=== PATIENT | female | born 1930 | race Caucasian/White ===

== ENCOUNTER 2020-05-05 23:20 | Inpatient (IN) | payer OTHER ==
--- NOTE | 2020-05-05 23:35 | PDOC ---
Attending Attestation - Resident Resident Name: Minnie Silva - ED Attending Attestation I have performed the following: I have examined & evaluated the patient, The case was reviewed & discussed with the resident, I agree w/resident's findings & plan, Exceptions are as noted - HPI HPI: 05/05/20 23:36 89 yo female BIBA for shortness of breath, pain in lower back. The daughter said that this pt had a 101 temperate yesterday and had been given tylenol 05/05/20 23:49 PMH: afib,dementia,htn,hld,PPM Dr Silva spoke with her daughter who is the health care proxy This patent is currently NOT on Coumadin because it was deemed she was a fall risk 05/06/20 00:45 89 yo female lives at home with an aide reviewd labs there is leukocytosis plan r/o PNA,ACS,uti - Physicial Exam PE: 05/05/20 23:37 slender 89 yo female with c/o low back pain head no scalp lacerations neck no cervical vertebral tenderness lungs cta b/l cvs irreg irreg rhythm abdomen no rebound.nontender extremities no edema skin warm and dry neuro axox3 05/06/20 00:10 - Medical Decision Making 05/06/20 00:28 She is on oxygen at home Dr Minnie Silva spoke with the pt's daughter for information Pt had c/o right sided back pain 05/06/20 00:33 05/06/20 00:58 PMH: afib,dementia,htn,hld,PPM Dr Silva spoke with her daughter who is the health care proxy This patent is currently NOT on Coumadin because it was deemed she was a fall risk , The daughter also said that the pt has supplemental oxygen at home that she uses as needed 05/06/20 00:45 89 yo female lives at home with an aide reviewd labs there is leukocytosis and the urinalysis revels UTI,antibiotics given also her troponin of 0.24 will have to be trended plan r/o PNA,ACS,uti 05/06/20 01:38 Discharge - Discharge Information Problems reviewed: Yes Clinical Impression/Diagnosis: Shortness of breath, Elevated troponin Leukocytosis (leucocytosis) Qualifiers: Leukocytosis type: unspecified Qualified Code(s): D72.829 - Elevated white blood cell count, unspecified - Admission Yes - Follow up/Referral - Patient Discharge Instructions - Post Discharge Activity
--- NOTE | 2020-05-05 23:54 | PDOC ---
History of Present Illness - General Stated Complaint: SOB Time Seen by Provider: 05/05/20 23:33 - History of Present Illness Initial Comments: Pt is an 89yo F with PMH CHF, afib s/p pacemaker, htn, hld, who presents with back pain x2 days. Reports intermittent, pleuritic back pain that is non radiating. Currently denies back pain or SOB. Denies f/c, chest pain, abdominal pain, n/v. denies trauma, falls. Walks with walker - denies JJ. Lives with daug hter at home. Reports remote history of DVT, denies recent immobilization, surgery, hemoptysis, or recent malignancy Spoke with daughter Ping Ward ([phone]) who states that patient was in her usual state of health on Tuesday. Reports that 2 days ago, patient was reporting SOB with increased intermittent oxygen requirement (although does not remember how much o2 needed). Reports that pt had 100.1 fever yesterday and was given Tylenol (last dose at 2pm today). Notes that patient has had decreased appetite, fatigue, and diffuse body ache during this time. States that patient is not on anticoagulation, lives with aide 7 hrs/day with family staying overnight. Daughter states that patient seems to have short term memory loss and denies hx of dementia. Pt was at [facility] in [place] for 2 months after discharge from here in November for palliative care - found to have sepsis (daughter did not know origin). Spoke with daughter who is healthcare proxy who states that patient is DNR/DNI. PCP: Elysia PMH: see above PSH: see chart Meds: TOPROL, LOSARTAN, FUROSEMIDE as per daughter Allergies: NKDA Review of Systems CONSTITUTIONAL:denies fever, chills, diaphoresis, generalized weakness HEENT:denies rhinorrhea, nasal congestion, sore throat, visual changes CARDIOVASCULAR:denies chest pain, palpitations, lightheadedness, peripheral edema RESPIRATORY:denies cough, shortness of breath, dyspnea with exertion, wheezing, hemoptysis GASTROINTESTINAL: denies abdominal pain, abdominal distension, nausea, vomiting, diarrhea, constipation, melena, hematochezia GENITOURINARY:denies dysuria, frequency, urgency, hesitancy, hematuria, flank pain, genital pain MUSCULOSKELETAL:reports back pain HEMATOLOGIC/IMMUNOLOGIC:denies easy bleeding, easy bruising ENDOCRINE: denies unexplained weight gain, unexplained weight loss, heat intolerance, cold intolerance NEUROLOGIC:denies headache, loss of consciousness, focal weakness or paresthesias, dizziness, unsteady gait, seizure, mental status changes, bladder or bowel incontinence SKIN:denies rash, itching, pallor Physical Exam General: awake, AOX4, in no acute distress, thin appearing Head: normocephalic, atraumatic Eyes: PERRL, anicteric sclera, conjunctiva clear ENT: mildly hard of hearing, oropharynx clear without exudates, moist mucous membranes Neck: supple, normal ROM, no stridor, no midline neck tenderness Lung: equal breath sounds b/l, CTA b/l, no crackles, wheezes Heart: irregular rhythm, normal S1, S2, no murmurs appreciated Abdomen: soft, non tender, normoactive bowel sounds Extremities: no edema, no erythema or tenderness, radial/DP/PT pulses 2+ and symmetric Back: no Neuro: CN2-12 grossly intact, normal speech, sensation intact Skin: warm, dry, decreased skin turgor, capillary refill <2 seconds MDM Pt is an 89yo M with PMH dementia, afib s/p pacemaker, htn, hld, who presents with pleuritic back pain, fever, SOB x2 days. Vitals significant for soft BP, tachycardia, tachypnea. DDx including but not limited to: PE, ACS, sepsis Workup: CBC, CMP, VBG, d-dimer, trop, BNP, cxr, ekg EKG: afib with RVR, HR 104bpm, QRS 84ms, QTc 420ms CXR - improvement pleural effusion. cardiomegaly, midline airway, appropriate vascular markings as read by ED staff 05/06/20 00:55 labs: leukocytosis (19.6), no anemia - Will give 1g Rocephin, 500ml NS labs: elevated d-dimer, ISAIAS, troponin (0.24), elevated BNP (11815.9) - will order ABG UA: bacteriuria, +2 LE Pt had history of fall with subsequent subarachnoid bleed on prior admission on 11/2019 - will order 60 SQ lovenox Admitted to Dr. Gautam, who accepted care of patient. Disposition Admit Past History - Medical History Allergies/Adverse Reactions: Allergies Allergy/AdvReac Type Severity Reaction Status Date / Time No Known Allergies Allergy Verified 05/05/20 23:37 Home Medications: Ambulatory Orders Amlodipine Besylate 5 mg PO DAILY 12/23/19 Furosemide 40 mg PO DAILY 12/23/19 Losartan Potassium 100 mg PO DAILY 12/23/19 Metoprolol Tartrate 100 mg PO DAILY 12/23/19 Aspirin Coated [Ecotrin -] 81 mg PO DAILY tablet.ec 12/31/19 Atorvastatin Ca [Lipitor] 40 mg PO HS tablet 12/31/19 Cholecalciferol (Vitamin D3) [Vitamin D3 -] 5,000 unit PO DAILY tab 12/31/19 Metoprolol Succinate [Toprol XL -] 50 mg PO BID tab.sr.24h 12/31/19 Anemia: No Asthma: No Cancer: No Cardiac Disorders: Yes (PACEMAKER; AFIB/RVR) CVA: No COPD: No CHF: No Dementia: Yes Diabetes: No GI Disorders: No Disorders: No HTN: Yes Hypercholesterolemia: Yes Liver Disease: No Seizures: No Thyroid Disease: No - Surgical History Abdominal Surgery: Yes (PARTIAL COLECTOMY & RE-ANASTAMOSIS) Appendectomy: No Cardiac Surgery: Yes (PPM INSERTION) Cholecystectomy: No Lung Surgery: No Neurologic Surgery: No Orthopedic Surgery: No - Reproductive History Is Patient Now?: No - Psycho-Social/Smoking History Smoking History: Never smoked Information on smoking cessation initiated: No - Substance Abuse Hx (Audit-C & DAST Scrn) How often the patient has a drink containing alcohol: Never Score: In Men: 4 or > Positive; In Women: 3 or > Positive: 0 Screen Result (Pos requires Nsg. Audit-10AR): Negative In the last yr the pt used illegal drug/Rx for NonMed reason: No Score: Yes response is considered Positive: 0 Screen Result (Positive result requires Nsg. DAST-10): Negative *Physical Exam - Vital Signs Last Vital Signs Temp Pulse Resp BP Pulse Ox 98.6 F 82 20 93/75 100 05/05/20 23:25 05/05/20 23:25 05/05/20 23:25 05/05/20 23:25 05/05/20 23:25 ED Treatment Course - LABORATORY CBC & Chemistry Diagram: 05/11/20 06:36 05/11/20 06:36 Discharge - Discharge Information Problems reviewed: Yes Clinical Impression/Diagnosis: Shortness of breath, Elevated troponin Leukocytosis (leucocytosis) Qualifiers: Leukocytosis type: unspecified Qualified Code(s): D72.829 - Elevated white blood cell count, unspecified - Follow up/Referral - Patient Discharge Instructions - Post Discharge Activity
[2020-05-06 00:41] LABS: BASO % 0.3 % (0-2.0); EOS % 0.9 % (0-4.5); HEMATOCRIT 34.2 % (32.4-45.2); HEMOGLOBIN 10.5 GM/dL (10.7-15.3); LYMPH % 5.6 % (8-40); MCH 22.6 pg (25.7-33.7); MCHC 30.8 g/dl (32.0-36.0); MEAN CELL VOLUME 73.4 fl (80-96); MEAN PLT VOLUME 9.5 fl (7.5-11.1); NEUT % 90.2 % (42.8-82.8); PLATELET COUNT 118 K/MM3 (134-434); RBC 4.66 M/mm3 (3.60-5.2); RDW 17.1 % (11.6-15.6); WHITE BLOOD COUNT 19.6 K/mm3 (4.0-10.0)
[2020-05-06] MEDS ORDERED: CEFTRIAXONE 1 GM in DEXTROSE 5%-WATER - 50 ML IVPB ONE (00:53)
[2020-05-06] MEDS ORDERED: SODIUM CHLORIDE 0.9% 500 ML INFUS.BAG IV ONE (00:54)
[2020-05-06 01:03] LABS: VENOUS BASE EXCESS -3.9 mmol/L (-2-2); VENOUS O2 SATURATION 71.8 % (70-80); VENOUS PCO2 40.4 mmHg (38-52); VENOUS PH 7.344 (7.310-7.410)
[2020-05-06 01:06] LABS: ALBUMIN 3.2 g/dl (3.4-5.0); BILIRUBIN,TOTAL 1.4 mg/dL (0.2-1); BLOOD UREA NITROGEN 61.8 mg/dL (7-18); CALCIUM 8.6 mg/dL (8.5-10.1); CREATININE 1.5 mg/dL (0.55-1.3); N-TERMINAL BNP 12656.9 pg/ml (5-450); POTASSIUM 4.3 mmol/L (3.5-5.1); TOT PROT 6.8 g/dl (6.4-8.2)
[2020-05-06] MEDS ORDERED: CEFTRIAXONE 1 GM/50 ML BAG ONE (01:15)
[2020-05-06 01:31] LABS: EPI CELLS 7 /uL (0-25.1); HYALINE CASTS 2 /uL (0-3.1); URINE APPEARANCE CLEAR; URINE BACTERIA >9,000 /uL (0-1359); URINE BILIRUBIN NEGATIVE (NEGATIVE); URINE COLOR YELLOW; URINE GLUCOSE (UA) NEGATIVE (NEGATIVE); URINE KETONE NEGATIVE (NEGATIVE); URINE LEUK ESTERASE 2+ (NEGATIVE); URINE NITRITE NEGATIVE (NEGATIVE); URINE PROTEIN NEGATIVE (NEGATIVE); URINE RBC 10 /uL (0-23.9); URINE WBC 236 /uL (0-25.8)
[2020-05-06] MEDS ORDERED: ENOXAPARIN NA (PORCINE) 60 MG/0.6 ML DISP.SYRIN SQ ONE ×2 (01:45→01:49)
[2020-05-06] MEDS ORDERED: ENOXAPARIN NA (PORCINE) 60 MG/0.6 ML DISP.SYRIN SQ SCH (01:45)
[2020-05-06 02:26] LABS: ANISOCYTOSIS 2+; MACROCYTOSIS 0; PLATELET ESTIMATE DECREASED
--- NOTE | 2020-05-06 02:41 | PN ---
Progress Note, Physician Chief Complaint: Acute shortness of breath and back pain History of Present Illness: This 89 yr old female with PMH of atrial fibrillation, dementia, HTN, HLD, PPM admitted via ER with an acute shortness of breath, low back pain, fever, neutrophilic leukocytosis, high d-dimer, UTI, urosepsis, elevated lactic acid, prerenal azotemia, dehydration, hyponatremia, elevated troponin, anemia, and thrombocytopenia. - Current Medication List Current Medications: Active Medications Enoxaparin Sodium (Lovenox -) 60 mg SQ ONCE JOSE Last Admin: 05/06/20 01:54 Dose: 60 mg Documented by: - Objective Vital Signs: Vital Signs Temperature 98.6 F 05/05/20 23:25 Pulse Rate 82 05/05/20 23:25 Respiratory Rate 20 05/05/20 23:25 Blood Pressure 93/75 05/05/20 23:25 O2 Sat by Pulse Oximetry (%) 100 05/06/20 02:09 Labs: CBC, BMP 05/06/20 00:28 05/06/20 00:28
--- NOTE | 2020-05-06 03:33 | HP ---
Admitting History and Physical - Admission Chief Complaint: Acute shortness of breath and low back pain History of Present Illness: This 89 yr old female with PMH of atrial fibrillation, dementia, HTN, HLD, PPM, DVT, CHF, short term memory loss admitted via ER with an acute shortness of breath, low back pain, fever, neutrophilic leukocytosis, high d- dimer, UTI, urosepsis, elevated lactic acid, prerenal azotemia, dehydration, hyponatremia, elevated troponin, anemia, and thrombocytopenia. History Source: Medical Record Limitations to Obtaining History: Dementia - Past Medical History [employer]: Yes: Dementia Cardiovascular: Yes: AFIB, CHF, HTN, Hyperlipdemia Pulmonary: No: Asthma, Bronchitis, Cancer, COPD, O2 Dependent, Pneumonia, Previously Intubated, Pulmonary Embolus, Pulmonary Fibrosis, Sleep Apnea, Other Gastrointestinal: No: Ascites, Cancer, Constipation, Crohn's Disease, Diverticulitis, Diverticulosis, Esophageal Varices, Gastritis, GERD, GI Bleed, Hemorrhoids, Hiatal Hernia, Inflamatory Bowel Disease, Irritable Bowel Disease, Pancreatitis, Peptic Ulcer Disease, Ulcerative Colitis, Other Hepatobiliary: No: Cirrhosis, Cholelithiasis, Cholecystitis, Choledocholithiasis, Hepatitis A, Hepatitis B, Hepatitis C, Other Renal/: No: Renal Failure, Renal Inusuff, BPH, Cancer, Hematuria, Hemodialysis, Neurogenic Bladder, Renal Calculi, UTI, Other Reproductive: No: Ectopic , Endometriosis, Fibroids, PID, Polycystic Ovary Syndrome, Postmenopausal, Other ...: No Heme/Onc: No: Anemia, B12 Deficiency, Bleeding Disorder, Cancer, Current Chemotherapy, Current Radiation Therapy, Hemochromatosis, Hypercoaguable State, Myeloproliferative Synd, Sickle Cell Disease, Sickle Cell Trait, Thrombocytopenia, Other Infectious Disease: No: AIDS, C-Diff, Herpes Zoster, HIV, MRSA, STD's, Tuberculosis, VREF, Other Psych: No: Addictions, Anxiety, Bipolar, Depression, Panic, Psychosis, Schizophrenia, Other Musculoskeletal: No: Bursitis, Chronic low back pain, Hemiparesis, Hemiplegia, Osteoarthritis, Paraplegia, Other Rheumatology: No: Fibromyalgia, Gout, Lupus, Rheumatoid Arthritis, Sarcoidosis, Vasculitis, Other ENT: No: Allergic Rhinitis, Sinusitis, Other Endocrine: No: La Salle's Disease, Reed's Disease, Diabetes Insipidus, Diabetes Mellitus, Hyperparathyroidism, Hyperthyroidism, Hypothyroidism, Osteopenia, SIADH, Other Dermatology: No: Basal Cell, Cellulitis, Eczema, Melanoma, Psoriasis, Squamous Cell, Other - Smoking History Smoking history: Never smoked - Alcohol/Substance Use Hx Alcohol Use: No Home Medications - Allergies Allergies/Adverse Reactions: Allergies Allergy/AdvReac Type Severity Reaction Status Date / Time No Known Allergies Allergy Verified 05/05/20 23:37 - Home Medications Home Medications: Ambulatory Orders Amlodipine Besylate 5 mg PO DAILY 12/23/19 Furosemide 40 mg PO DAILY 12/23/19 Losartan Potassium 100 mg PO DAILY 12/23/19 Metoprolol Tartrate 100 mg PO DAILY 12/23/19 Simvastatin 40 mg PO DAILY 12/23/19 Aspirin Coated [Ecotrin -] 81 mg PO DAILY tablet.ec 12/31/19 Atorvastatin Ca [Lipitor] 40 mg PO HS tablet 12/31/19 Cholecalciferol (Vitamin D3) [Vitamin D3 -] 5,000 unit PO DAILY tab 12/31/19 Metoprolol Succinate [Toprol XL -] 50 mg PO BID tab.sr.24h 12/31/19 Review of Systems - Review of Systems Constitutional: reports: Malaise, Weakness Eyes: reports: No Symptoms HENT: reports: No Symptoms Neck: reports: No Symptoms Cardiovascular: reports: No Symptoms Respiratory: reports: SOB Gastrointestinal: reports: No Symptoms Genitourinary: reports: No Symptoms Breasts: reports: No Symptoms Reported Musculoskeletal: reports: Muscle Weakness Neurological: reports: Unsteady Gait, Weakness Endocrine: reports: No Symptoms Hematology/Lymphatic: reports: No Symptoms Psychiatric: reports: No Symptoms Physical Examination Vital Signs: Vital Signs Temperature 98.6 F 05/05/20 23:25 Pulse Rate 82 05/05/20 23:25 Respiratory Rate 20 05/05/20 23:25 Blood Pressure 93/75 05/05/20 23:25 O2 Sat by Pulse Oximetry (%) 100 05/06/20 02:09 Constitutional: Yes: Well Nourished, No Distress, Calm Eyes: Yes: Conjunctiva Clear, EOM Intact HENT: Yes: Atraumatic, Normocephalic Neck: Yes: Supple, Trachea Midline Cardiovascular: Yes: Pulse Irregular (atrial fibrillation) Respiratory: Yes: Regular, CTA Bilaterally Gastrointestinal: Yes: Normal Bowel Sounds, Soft ...Rectal Exam: Yes: Deferred Renal/: Yes: Incontinence Breast(s): Yes: WNL Musculoskeletal: Yes: Muscle Weakness Extremities: Yes: WNL Edema: No Peripheral Pulses WNL: Yes Integumentary: Yes: WNL Neurological: Yes: Alert, Unsteady Gait, Weakness ...Motor Strength: LUE (generalized muscle weakness of all extremities) Psychiatric: Yes: Alert Labs: CBC, BMP 05/06/20 00:28 05/06/20 00:28 Imaging - Results EKG: Report Reviewed Other: Report Reviewed (lab data reviewed) Problem List - Problems (1) AMS (altered mental status) Code(s): R41.82 - ALTERED MENTAL STATUS, UNSPECIFIED Qualifiers: Altered mental status type: unspecified Qualified Code(s): R41.82 - Altered mental status, unspecified (2) Atrial fibrillation with RVR Code(s): I48.91 - UNSPECIFIED ATRIAL FIBRILLATION (3) Elevated INR Code(s): R79.1 - ABNORMAL COAGULATION PROFILE (4) Elevated troponin Code(s): R79.89 - OTHER SPECIFIED ABNORMAL FINDINGS OF BLOOD CHEMISTRY (5) Eosinophilia Code(s): D72.1 - EOSINOPHILIA (6) Fever Code(s): R50.9 - FEVER, UNSPECIFIED (7) Intracranial bleed Code(s): I62.9 - NONTRAUMATIC INTRACRANIAL HEMORRHAGE, UNSPECIFIED (8) Pneumonia Code(s): J18.9 - PNEUMONIA, UNSPECIFIED ORGANISM Qualifiers: Pneumonia type: due to unspecified organism Laterality: left Lung location: lower lobe of lung Qualified Code(s): J18.9 - Pneumonia, unspecified organism (9) Sepsis Code(s): A41.9 - SEPSIS, UNSPECIFIED ORGANISM Qualifiers: Sepsis type: sepsis due to unspecified organism Sepsis acute organ dysfunction status: with acute organ dysfunction Severe sepsis acute organ dysfunction type: unspecified Severe sepsis shock status: without septic shock Qualified Code(s): A41.9 - Sepsis, unspecified organism; R65.20 - Severe sepsis without septic shock (10) Suspected 2019 novel coronavirus infection Code(s): Z20.828 - CONTACT W AND EXPOSURE TO OTH VIRAL COMMUNICABLE DISEASES (11) Shortness of breath Code(s): R06.02 - SHORTNESS OF BREATH (12) Prerenal azotemia Code(s): R79.89 - OTHER SPECIFIED ABNORMAL FINDINGS OF BLOOD CHEMISTRY (13) Dehydration Code(s): E86.0 - DEHYDRATION (14) High serum lactic acid Code(s): R79.89 - OTHER SPECIFIED ABNORMAL FINDINGS OF BLOOD CHEMISTRY (15) Thrombocytopenia Code(s): D69.6 - THROMBOCYTOPENIA, UNSPECIFIED (16) Leukocytosis (leucocytosis) Code(s): D72.829 - ELEVATED WHITE BLOOD CELL COUNT, UNSPECIFIED (17) Hyponatremia Code(s): E87.1 - HYPO-OSMOLALITY AND HYPONATREMIA (18) Hypotension Code(s): I95.9 - HYPOTENSION, UNSPECIFIED Assessment/Plan Assessment/plan: acute shortness of breath, altered mental status, fever, low back pain, UTI, urosepsis, elevated d-dimer, elevated troponin, elevated lactic acid, neurophilic leukocytosis, thrombocytopenia, hyponatremia, prerenal azotemia, dehydration, anemia atrial fibrillation, dementia, HTN, HLD, PPM, CHF; IV Ceftriaxone for UTI, urosepsis; SQ Lovenox for atrial fibrillation and elevated d-dimer; IV fluids for prerenal azotemia and dehydration; amlodipine losartan and metoprolol for HTN; physical therapy for deconditioning; oxygen 2L/min via nasal cannula for shortness of breath; consult to ID; oral furosemide for CHF.
[2020-05-06] MEDS: D5-1/2NS+10 MEQ KCL - 10 MEQ/1,000 ML INFUS.BAG IV SCH ×2 (04:05→20:59)
[2020-05-06] MEDS ORDERED: FUROSEMIDE 40 MG TABLET (FP) ONE (07:54)
[2020-05-06] MEDS ORDERED: ASPIRIN COATED 81 MG TABLET.EC ONE (07:54)
[2020-05-06] MEDS ORDERED: amLODIPine BESYLATE 5 MG TABLET (FP) ONE (07:55)
[2020-05-06] MEDS: amLODIPine BESYLATE 5 MG TABLET (FP) PO SCH (09:23)
[2020-05-06] MEDS: FUROSEMIDE 40 MG TABLET (FP) PO SCH (09:23)
[2020-05-06] MEDS: CHOLECALCIFEROL (VIT D3) 1,000 UNIT (25 MCG) TABLET PO SCH (09:24)
[2020-05-06] MEDS ORDERED: ASPIRIN COATED 81 MG TABLET.EC PO SCH (10:00)
[2020-05-06] MEDS ORDERED: METOPROLOL TARTRATE 50 MG TABLET (FP) PO SCH (10:00)
[2020-05-06] MEDS ORDERED: ACETAMINOPHEN 500 MG TABLET (FP) PO ONE (12:47)
[2020-05-06] MEDS ORDERED: ACETAMINOPHEN 325 MG TABLET (FP) ONE (12:48)
--- NOTE | 2020-05-06 13:48 | PN ---
Progress Note - Medications Home Medications: Ambulatory Orders Amlodipine Besylate 5 mg PO DAILY 12/23/19 Furosemide 40 mg PO DAILY 12/23/19 Losartan Potassium 100 mg PO DAILY 12/23/19 Metoprolol Tartrate 100 mg PO DAILY 12/23/19 Aspirin Coated [Ecotrin -] 81 mg PO DAILY tablet.ec 12/31/19 Atorvastatin Ca [Lipitor] 40 mg PO HS tablet 12/31/19 Cholecalciferol (Vitamin D3) [Vitamin D3 -] 5,000 unit PO DAILY tab 12/31/19 Metoprolol Succinate [Toprol XL -] 50 mg PO BID tab.sr.24h 12/31/19 Social - Smoking Smoking history: Never smoked - Past Substance Use/Tx. Hx Hx Alcohol Use: No Hx Substance Use: No Hx Substance Use Treatment: No Tobacco Cessation - Referrals Referrals: Gibran Naidu [Primary Care Provider] - Physical Exam - Vital Signs Vital Signs: Vital Signs - 24 hr 05/05/20 05/06/20 05/06/20 23:25 02:09 03:20 Temperature 98.6 F Pulse Rate 82 Pulse Rate [ 104 H Right Radial] Respiratory 20 30 H Rate Blood Pressure 93/75 Blood Pressure 118/59 L [Left Arm] O2 Sat by Pulse 100 100 100 Oximetry (%) 05/06/20 05/06/20 05/06/20 06:07 09:35 09:38 Temperature 98.4 F 98.7 F Pulse Rate Pulse Rate [ 107 H 106 H Right Radial] Respiratory 20 20 21 H Rate Blood Pressure Blood Pressure 116/60 118/79 [Left Arm] O2 Sat by Pulse 98 98 98 Oximetry (%) 05/06/20 05/06/20 11:59 12:47 Temperature 99.4 F Pulse Rate Pulse Rate [ 88 Right Radial] Respiratory 21 H Rate Blood Pressure Blood Pressure 100/55 L [Left Arm] O2 Sat by Pulse 99 Oximetry (%)
--- NOTE | 2020-05-06 18:26 | PN ---
Progress Note (short form) - Note Progress Note: ID consult dictated imp/reccd fever pyuria leukoctosis isaias blood cultures rocephin renal sonogram r/o obstruction Problem List - Problems (1) Fever Code(s): R50.9 - FEVER, UNSPECIFIED (2) Pyuria Code(s): R82.81 - PYURIA (3) Leukocytosis (leucocytosis) Code(s): D72.829 - ELEVATED WHITE BLOOD CELL COUNT, UNSPECIFIED Qualifiers: Leukocytosis type: unspecified Qualified Code(s): D72.829 - Elevated white blood cell count, unspecified (4) ISAIAS (acute kidney injury) Code(s): N17.9 - ACUTE KIDNEY FAILURE, UNSPECIFIED
--- NOTE | 2020-05-06 19:27 | CONS ---
DATE OF CONSULTATION: DATE OF DICTATION: 05/06/2020 INFECTIOUS DISEASE CONSULTATION HISTORY OF PRESENT ILLNESS: This is an 89-year-old woman who comes from home where she was noted to have fever of apparently 100.1 yesterday. She was also noted to have shortness of breath and low back pain. She was noted to have a mild leukocytosis and some pyuria, and was admitted for further evaluation. She is currently resting comfortably. She is laying flat in bed without any shortness of breath, and has no complaints. PAST MEDICAL HISTORY: Notable for history of atrial fibrillation, hypertension, hyperlipidemia. SURGICAL HISTORY: Notable for pacemaker, section, partial colectomy after colonoscopy with re-anastomosis. SOCIAL HISTORY: No history of cigarette, alcohol, or substance use. MEDICATION: Her medications as outpatient include: 1. Metoprolol. 2. Losartan. 3. Furosemide. 4. Vitamin D. 5. Lipitor. 6. Ecotrin. 7. Amlodipine. 8. Metoprolol. ALLERGIES: She has no known drug allergies. REVIEW OF SYSTEMS: She has no complaints. She denies any chest pain or shortness of breath. She denies any abdominal pain. PHYSICAL EXAMINATION: General: She is awake and alert, lying flat. Vital Signs: Temperature is 99.4, pulse of 75, blood pressure 102/64, respiratory rate 20. She is saturating 98% on 2 L. HEENT: Normocephalic. Eyes are anicteric. Neck: Supple. Lungs: Clear to auscultation. Heart: Regular rate and rhythm. Abdomen: Soft, nontender. Extremities: Without edema. LABORATORY: White count is 19.6, hemoglobin is 10.5, platelets are 118. Her BUN and creatinine are 61 and 1.5 with a lactic acid of 2.5. Urinalysis shows 2+ leukocytes with 136 white cells. Urine culture is pending. No blood cultures were sent, which I will order. She received a dose of ceftriaxone in the ER. IMPRESSION: In summary, this is an elderly woman admitted with fever, pyuria, elevated white count, elevated creatinine. Would obtain a renal sonogram to rule out any obstruction. Would continue ceftriaxone as ordered. Would repeat labs in the morning, and would get blood cultures as well. Further recommendations to follow. MAME GELLER M.D. [id number]
[2020-05-06] MEDS: LOSARTAN POTASSIUM 50 MG TABLET (FP) PO SCH (20:59)
[2020-05-06] MEDS: ATORVASTATIN CA 40 MG TABLET (FP) PO SCH (20:59)
[2020-05-07] MEDS: ENOXAPARIN NA (PORCINE) 60 MG/0.6 ML DISP.SYRIN SQ SCH (00:35)
[2020-05-07 01:23] VITALS: BMI 20.2
--- NOTE | 2020-05-07 02:16 | PN ---
Progress Note, Physician Chief Complaint: Patient seen and examined at the bedside, no acute events from last night, afebrile. History of Present Illness: This 89 yr old female with PMH of atrial fibrillation, dementia, HTN, HLD, PPM, DVT, CHF, short term memory loss admitted via ER with an acute shortness of breath, low back pain, fever, neutrophilic leukocytosis, prerenal azotemia, dehydration, thrombocytopenia, elevated troponin level, high d-dimer, UTI, urosepsis, anemia, hyponatremia, and elevated lactic acid. - Current Medication List Current Medications: Active Medications Amlodipine Besylate (Norvasc -) 5 mg PO DAILY [facility] Last Admin: 05/06/20 09:23 Dose: 5 mg Documented by: Aspirin (Ecotrin -) 81 mg PO DAILY [facility] Last Admin: 05/06/20 09:23 Dose: 81 mg Documented by: Atorvastatin Calcium (Lipitor -) 40 mg PO HS [facility] Last Admin: 05/06/20 20:59 Dose: 40 mg Documented by: Cholecalciferol (Vitamin D3 -) 5,000 unit PO DAILY [facility] Last Admin: 05/06/20 09:24 Dose: 5,000 unit Documented by: Enoxaparin Sodium (Lovenox -) 60 mg SQ Q24H [facility] Last Admin: 05/07/20 00:35 Dose: 60 mg Documented by: Furosemide (Lasix -) 40 mg PO DAILY [facility] Last Admin: 05/06/20 09:23 Dose: 40 mg Documented by: Potassium Chloride/Dextrose/Sod Cl (D5-1/2ns+10 Meq Kcl -) 10 meq in 1,000 mls @ 50 mls/hr IV ASDIR [facility] Last Admin: 05/06/20 20:59 Dose: 50 mls/hr Documented by: Ceftriaxone Sodium 1 gm/ (Dextrose) 50 mls @ 100 mls/hr IVPB DAILY [facility]; Pr otocol Losartan Potassium (Cozaar -) 100 mg PO DAILY [facility] Last Admin: 05/06/20 20:59 Dose: Not Given Documented by: Metoprolol Succinate (Toprol Xl -) 50 mg PO BID [facility] Last Admin: 05/06/20 20:59 Dose: Not Given Documented by: - Objective Vital Signs: Vital Signs Temperature 97.6 F 05/07/20 01:47 Pulse Rate 89 05/07/20 01:47 Respiratory Rate 18 05/07/20 01:47 Blood Pressure 110/57 L 05/07/20 01:47 O2 Sat by Pulse Oximetry (%) 98 05/07/20 01:47 Constitutional: Yes: Well Nourished, No Distress, Calm Eyes: Yes: Conjunctiva Clear, EOM Intact HENT: Yes: Atraumatic, Normocephalic Neck: Yes: Supple, Trachea Midline Cardiovascular: Yes: Pulse Irregular (atrial fibrillation) Respiratory: Yes: Regular, CTA Bilaterally Gastrointestinal: Yes: Normal Bowel Sounds, Soft ...Rectal Exam: Yes: Deferred Genitourinary: Yes: WNL Breast(s): Yes: WNL Musculoskeletal: Yes: Muscle Weakness Edema: No Peripheral Pulses WNL: Yes Integumentary: Yes: WNL Neurological: Yes: Alert, Weakness ...Motor Strength: LUE (generalized muscle weakness of all extremities) Psychiatric: Yes: Alert Labs: CBC, BMP 05/06/20 00:28 05/06/20 00:28 - ....Imaging Other: Report Reviewed (lab data reviewed) Problem List - Problems (1) AMS (altered mental status) Code(s): R41.82 - ALTERED MENTAL STATUS, UNSPECIFIED Qualifiers: Altered mental status type: unspecified Qualified Code(s): R41.82 - Altered mental status, unspecified (2) Atrial fibrillation with RVR Code(s): I48.91 - UNSPECIFIED ATRIAL FIBRILLATION (3) Elevated INR Code(s): R79.1 - ABNORMAL COAGULATION PROFILE (4) Elevated troponin Code(s): R79.89 - OTHER SPECIFIED ABNORMAL FINDINGS OF BLOOD CHEMISTRY (5) Eosinophilia Code(s): D72.1 - EOSINOPHILIA (6) Fever Code(s): R50.9 - FEVER, UNSPECIFIED (7) Intracranial bleed Code(s): I62.9 - NONTRAUMATIC INTRACRANIAL HEMORRHAGE, UNSPECIFIED (8) Pneumonia Code(s): J18.9 - PNEUMONIA, UNSPECIFIED ORGANISM Qualifiers: Pneumonia type: due to unspecified organism Laterality: left Lung location: lower lobe of lung Qualified Code(s): J18.9 - Pneumonia, unspecified organism (9) Sepsis Code(s): A41.9 - SEPSIS, UNSPECIFIED ORGANISM Qualifiers: Sepsis type: sepsis due to unspecified organism Sepsis acute organ dysfunction status: with acute organ dysfunction Severe sepsis acute organ dysfunction type: unspecified Severe sepsis shock status: without septic shock Qualified Code(s): A41.9 - Sepsis, unspecified organism; R65.20 - Severe sepsis without septic shock (10) Suspected 2019 novel coronavirus infection Code(s): Z20.828 - CONTACT W AND EXPOSURE TO [facility] VIRAL COMMUNICABLE DISEASES (11) Shortness of breath Code(s): R06.02 - SHORTNESS OF BREATH (12) Prerenal azotemia Code(s): R79.89 - OTHER SPECIFIED ABNORMAL FINDINGS OF BLOOD CHEMISTRY (13) Dehydration Code(s): E86.0 - DEHYDRATION (14) High serum lactic acid Code(s): R79.89 - OTHER SPECIFIED ABNORMAL FINDINGS OF BLOOD CHEMISTRY (15) Thrombocytopenia Code(s): D69.6 - THROMBOCYTOPENIA, UNSPECIFIED (16) Leukocytosis (leucocytosis) Code(s): D72.829 - ELEVATED WHITE BLOOD CELL COUNT, UNSPECIFIED Qualifiers: Leukocytosis type: unspecified Qualified Code(s): D72.829 - Elevated white blood cell count, unspecified (17) Hyponatremia Code(s): E87.1 - HYPO-OSMOLALITY AND HYPONATREMIA (18) Hypotension Code(s): I95.9 - HYPOTENSION, UNSPECIFIED Assessment/Plan Assessment/plan: IV Ceftriaxone for UTI, urosepsis; a/c with Lovenox for high d- dimer; SQ Lovenox and oral pantoprazole for DVT/GI prophylaxis; IV fluids for dehydration and prerenal azotemia; amlodipine losartan and metoprolol for HTN; atorvastatin for HLD; elevated troponin and lactic acid, anemia, thrombocytopenia, physical therapy for deconditioning, oxygen 2L/min via nasal cannula with spo2 98%.
[2020-05-07] MEDS ORDERED: ACETAMINOPHEN 325 MG TABLET (FP) ONE (05:27)
[2020-05-07] MEDS: D5-1/2NS+10 MEQ KCL - 10 MEQ/1,000 ML INFUS.BAG IV SCH ×2 (06:16→21:05)
[2020-05-07] MEDS: PANTOPRAZOLE 40 MG TABLET PO SCH (06:16)
[2020-05-07] MEDS: ACETAMINOPHEN 325 MG TABLET (FP) PO PRN ×2 (06:58→15:14)
[2020-05-07 08:15] LABS: BASO % 0.3 % (0-2.0); EOS % 1.7 % (0-4.5); HEMATOCRIT 30.3 % (32.4-45.2); HEMOGLOBIN 9.5 GM/dL (10.7-15.3); LYMPH % 8.7 % (8-40); MCH 22.2 pg (25.7-33.7); MCHC 31.2 g/dl (32.0-36.0); MEAN CELL VOLUME 71.1 fl (80-96); MEAN PLT VOLUME 10.3 fl (7.5-11.1); NEUT % 86.3 % (42.8-82.8); PLATELET COUNT 102 K/MM3 (134-434); RBC 4.27 M/mm3 (3.60-5.2); RDW 17.3 % (11.6-15.6); WHITE BLOOD COUNT 11.5 K/mm3 (4.0-10.0)
[2020-05-07 08:29] LABS: ALBUMIN 2.4 g/dl (3.4-5.0); CALCIUM 8.7 mg/dL (8.5-10.1); CREATININE 0.8 mg/dL (0.55-1.3); POTASSIUM 3.7 mmol/L (3.5-5.1); TOT PROT 5.6 g/dl (6.4-8.2)
[2020-05-07 08:50] LABS: BLOOD UREA NITROGEN 33.2 mg/dL (7-18)
[2020-05-07] MEDS ORDERED: DEXTROSE 5%-WATER - 50 ML IVPB ONE (09:25)
[2020-05-07] MEDS ORDERED: cefTRIAXone SODIUM 1 GM VIAL ONE (09:25)
[2020-05-07] MEDS: LOSARTAN POTASSIUM 50 MG TABLET (FP) PO SCH (09:27)
[2020-05-07] MEDS: FUROSEMIDE 40 MG TABLET (FP) PO SCH (09:27)
[2020-05-07] MEDS: amLODIPine BESYLATE 5 MG TABLET (FP) PO SCH (09:27)
[2020-05-07] MEDS: CEFTRIAXONE 1 GM in DEXTROSE 5%-WATER - 50 ML IVPB SCH (09:27)
[2020-05-07] MEDS ORDERED: IRON SUCROSE INJECTION 100 MG in SODIUM CHLORIDE 95 ML IVPB ONE (09:28)
[2020-05-07] MEDS: CHOLECALCIFEROL (VIT D3) 1,000 UNIT (25 MCG) TABLET PO SCH (09:28)
[2020-05-07] MEDS ORDERED: METOPROLOL TARTRATE 5 MG/5 ML VIAL IVPUSH ONE (12:47)
[2020-05-07] MEDS: METOPROLOL TARTRATE 25 MG TABLET (FP) PO SCH ×2 (13:18→21:05)
--- NOTE | 2020-05-07 14:29 | CON.CARD ---
Consult Consult Specialty:: Cardiology Referred by:: Dr. Mello Reason for Consultation:: Rapid afib - History of Present Illness Chief Complaint: Dyspnea History of Present Illness: A This 89 yr old female with PMH of atrial fibrillation, dementia non- verbal, HTN, HLD, PPM, DVT, CHF, previous fall with SAH admitted via ER with shortness of breath, low back pain, fever, neutrophilic leukocytosis, high d- dimer, UTI, urosepsis, elevated lactic acid, prerenal azotemia, dehydration, hyponatremia, elevated troponin, anemia, and thrombocytopenia. Afebrile w/ low BP and rapid afib rate-controlled with metoprolol. Previous conclusion patient was not optimal a/c candidate. - History Source History Provided By: Medical Record Limitations to Obtaining History: Dementia - Past Medical History [employer]: Yes: Dementia Cardio/Vascular: Yes: AFIB, CHF, HTN, Hyperlipdemia Pulmonary: No: Asthma, Bronchitis, Cancer, COPD, O2 Dependent, Pneumonia, Previously Intubated, Pulmonary Embolus, Pulmonary Fibrosis, Sleep Apnea, Other Gastrointestinal: No: Ascites, Cancer, Constipation, Crohn's Disease, Diverticulitis, Diverticulosis, Esophageal Varices, Gastritis, GERD, GI Bleed, Hemorrhoids, Hiatal Hernia, Inflamatory Bowel Disease, Irritable Bowel Disease, Pancreatitis, Peptic Ulcer Disease, Ulcerative Colitis, Other Hepatobiliary: No: Cirrhosis, Cholelithiasis, Cholecystitis, Choledocholithiasis, Hepatitis A, Hepatitis B, Hepatitis C, Other Renal/: No: Renal Failure, Renal Inusuff, BPH, Cancer, Hematuria, Hemodialysis, Neurogenic Bladder, Renal Calculi, UTI, Other ...: No Infectious Disease: No: AIDS, C-Diff, Herpes Zoster, HIV, MRSA, STD's, Tuberculosis, VREF, Other Psych: No: Addictions, Anxiety, Bipolar, Depression, Panic, Psychosis, Schizophrenia, Other Musculoskeletal: No: Bursitis, Chronic low back pain, Hemiparesis, Hemiplegia, Osteoarthritis, Paraplegia, Other Rheumatology: No: Fibromyalgia, Gout, Lupus, Rheumatoid Arthritis, Sarcoidosis, Vasculitis, Other ENT: No: Allergic Rhinitis, Sinusitis, Other Endocrine: No: Lyon's Disease, Reed's Disease, Diabetes Insipidus, Diabetes Mellitus, Hyperparathyroidism, Hyperthyroidism, Hypothyroidism, Osteopenia, SIADH, Other Dermatology: No: Basal Cell, Cellulitis, Eczema, Melanoma, Psoriasis, Squamous Cell, Other - Alcohol/Substance Use Hx Alcohol Use: No - Smoking History Smoking history: Never smoked - Social History Usual Living Arrangement: Alone Home Medications - Allergies Allergies/Adverse Reactions: Allergies Allergy/AdvReac Type Severity Reaction Status Date / Time No Known Allergies Allergy Verified 05/05/20 23:37 - Home Medications Home Medications: Ambulatory Orders Amlodipine Besylate 5 mg PO DAILY 12/23/19 Furosemide 40 mg PO DAILY 12/23/19 Losartan Potassium 100 mg PO DAILY 12/23/19 Metoprolol Tartrate 100 mg PO DAILY 12/23/19 Aspirin Coated [Ecotrin -] 81 mg PO DAILY tablet.ec 12/31/19 Atorvastatin Ca [Lipitor] 40 mg PO HS tablet 12/31/19 Cholecalciferol (Vitamin D3) [Vitamin D3 -] 5,000 unit PO DAILY tab 12/31/19 Metoprolol Succinate [Toprol XL -] 50 mg PO BID tab.sr.24h 12/31/19 Review of Systems Unable to obtain ROS, reason: Dementia Vital Signs: Vital Signs Temperature 98.0 F 05/07/20 09:38 Pulse Rate 106 H 05/07/20 09:39 Respiratory Rate 18 05/07/20 09:38 Blood Pressure 91/49 L 05/07/20 09:39 O2 Sat by Pulse Oximetry (%) 97 05/07/20 10:00 Constitutional: Yes: No Distress, Calm, Thin Neck: Yes: Supple Respiratory: Yes: Regular, Diminished, On Nasal O2 Gastrointestinal: Yes: Soft, Hypoactive Bowel Sounds Cardiovascular: Yes: Tachycardia, Pulse Irregular JVD: No Carotid Bruit: No Heart Sounds: Yes: S1, S2 Edema: No - Other Data Labs, Other Data: CBC, BMP 05/07/20 06:49 05/07/20 06:49 Troponin, BNP 05/07/20 06:49 Troponin I 0.04 Troponin, BNP 05/07/20 06:49 Troponin I 0.04 Afib with RVR Echo: Report Reviewed Ejection Fraction %: LVEF > or = 40 % Imaging - Results Chest X-ray: Report Reviewed (Improvement) Problem List - Problems (1) Hyponatremia Code(s): E87.1 - HYPO-OSMOLALITY AND HYPONATREMIA (2) Hypotension Code(s): I95.9 - HYPOTENSION, UNSPECIFIED Qualifiers: Hypotension type: hypotension due to hypovolemia Qualified Code(s): I95.89 - Other hypotension; E86.1 - Hypovolemia (3) Leukocytosis (leucocytosis) Code(s): D72.829 - ELEVATED WHITE BLOOD CELL COUNT, UNSPECIFIED Qualifiers: Leukocytosis type: unspecified Qualified Code(s): D72.829 - Elevated white blood cell count, unspecified (4) Prerenal azotemia Code(s): R79.89 - OTHER SPECIFIED ABNORMAL FINDINGS OF BLOOD CHEMISTRY (5) Shortness of breath Code(s): R06.02 - SHORTNESS OF BREATH (6) AMS (altered mental status) Code(s): R41.82 - ALTERED MENTAL STATUS, UNSPECIFIED Qualifiers: Altered mental status type: unspecified Qualified Code(s): R41.82 - Altered mental status, unspecified (7) Atrial fibrillation with RVR Code(s): I48.91 - UNSPECIFIED ATRIAL FIBRILLATION (8) Sepsis Code(s): A41.9 - SEPSIS, UNSPECIFIED ORGANISM Qualifiers: Sepsis type: sepsis due to unspecified organism Sepsis acute organ dysfunction status: with acute organ dysfunction Severe sepsis acute organ dysfunction type: unspecified Severe sepsis shock status: without septic shock Qualified Code(s): A41.9 - Sepsis, unspecified organism; R65.20 - Severe sepsis without septic shock Assessment/Plan a/p: 89 f hx dementia, afib with RVR, ppm, htn, hld, here with dyspnea, leukocytosis, fever, pyuria and ISAIAS since improving 1. Persistent afib with RVR 2. Dementia 3. Previous fall with SAH not ideal a/c candidate 4. s/p PPM 5. HTN currently hypotensive 6. Hyperlipidemia 7. UTI 9. ISAIAS resolving 10. Demand ischemia P:1. Rate-control with metoprolol both oral and IV, trops downtrending, resume losartan once renal fxn stabilizes as hemodynamocs tolerate 2. No longer on coumadin as patient is not ideal a/c candidate given previous falls, SAH, dementia, comfort measures 3. Empiric abx per C&S, monitor renal recovery 4. Thank you for consultative opportunity
[2020-05-07] MEDS: ATORVASTATIN CA 40 MG TABLET (FP) PO SCH (21:05)
[2020-05-08] MEDS: ENOXAPARIN NA (PORCINE) 60 MG/0.6 ML DISP.SYRIN SQ SCH (00:28)
[2020-05-08] MEDS: ACETAMINOPHEN 325 MG TABLET (FP) PO PRN (06:09)
[2020-05-08] MEDS: D5-1/2NS+10 MEQ KCL - 10 MEQ/1,000 ML INFUS.BAG IV SCH ×2 (06:09→17:40)
[2020-05-08] MEDS: PANTOPRAZOLE 40 MG TABLET PO SCH (06:09)
[2020-05-08 06:31] LABS: BASO % 0.6 % (0-2.0); EOS % 1.7 % (0-4.5); HEMATOCRIT 30.9 % (32.4-45.2); HEMOGLOBIN 9.8 GM/dL (10.7-15.3); LYMPH % 16.2 % (8-40); MCH 22.4 pg (25.7-33.7); MCHC 31.8 g/dl (32.0-36.0); MEAN CELL VOLUME 70.4 fl (80-96); MEAN PLT VOLUME 9.5 fl (7.5-11.1); MONO % 7.5 % (3.8-10.2); PLATELET COUNT 117 K/MM3 (134-434); RBC 4.39 M/mm3 (3.60-5.2); RDW 17.4 % (11.6-15.6); WHITE BLOOD COUNT 7.8 K/mm3 (4.0-10.0)
[2020-05-08 06:50] LABS: ALBUMIN 2.3 g/dl (3.4-5.0); BILIRUBIN,TOTAL 0.9 mg/dL (0.2-1); BLOOD UREA NITROGEN 18.8 mg/dL (7-18); CALCIUM 8.5 mg/dL (8.5-10.1); CREATININE 0.7 mg/dL (0.55-1.3); POTASSIUM 3.4 mmol/L (3.5-5.1)
--- NOTE | 2020-05-08 08:44 | PN ---
Progress Note, Physician Chief Complaint: Patient seen and examined at the bedside, no acute events from last night, low grade fever, c/o low back pain. History of Present Illness: This 89 yr old w/f with PMH of atrial fibrillation, dementia, HTN, HLD, PPM, DVT, CHF, memory loss admitted via ER with an acute shortness of breath, low back pain, fever, neutrophilic leukocytosis, prerenal azotemia, dehydration, thrombocytopenia, elevated troponin level, high d-dimer, UTI, urosepsis, hyponatremia, and elevated lactic acid. - Current Medication List Current Medications: Active Medications Acetaminophen (Tylenol -) 650 mg PO Q6H PRN PRN Reason: PAIN 1-10 Last Admin: 05/08/20 06:09 Dose: 650 mg Documented by: Atorvastatin Calcium (Lipitor -) 40 mg PO HS [facility] Last Admin: 05/07/20 21:05 Dose: 40 mg Documented by: Cholecalciferol (Vitamin D3 -) 5,000 unit PO DAILY [facility] Last Admin: 05/07/20 09:28 Dose: 5,000 unit Documented by: Enoxaparin Sodium (Lovenox -) 60 mg SQ Q24H [facility] Last Admin: 05/08/20 00:28 Dose: 60 mg Documented by: Furosemide (Lasix -) 40 mg PO DAILY [facility] Last Admin: 05/07/20 09:27 Dose: 40 mg Documented by: Potassium Chloride/Dextrose/Sod Cl (D5-1/2ns+10 Meq Kcl -) 10 meq in 1,000 mls @ 50 mls/hr IV ASDIR [facility] Last Admin: 05/08/20 06:09 Dose: Not Given Documented by: Ceftriaxone Sodium 1 gm/ (Dextrose) 50 mls @ 100 mls/hr IVPB DAILY [facility]; Protocol Last Admin: 05/07/20 09:27 Dose: 100 mls/hr Documented by: Metoprolol Tartrate (Lopressor -) 25 mg PO BID [facility] Last Admin: 05/07/20 21:05 Dose: 25 mg Documented by: Metoprolol Tartrate (Lopressor Injection -) 5 mg IVPUSH Q4H PRN PRN Reason: TACHYCARDIA Pantoprazole Sodium (Protonix -) 40 mg PO ACBK [facility] Last Admin: 05/08/20 06:09 Dose: 40 mg Documented by: - Objective Vital Signs: Vital Signs Temperature 100.3 F H 09/10/20 06:30 Pulse Rate 125 H 05/08/20 06:30 Respiratory Rate 16 05/08/20 06:30 Blood Pressure 113/68 05/08/20 06:30 O2 Sat by Pulse Oximetry (%) 99 05/08/20 06:30 Constitutional: Yes: Well Nourished, Calm, Mild Distress Eyes: Yes: Conjunctiva Clear, EOM Intact HENT: Yes: Atraumatic, Normocephalic Neck: Yes: Supple, Trachea Midline Cardiovascular: Yes: Pulse Irregular (atrial fibrillation with RVR) Respiratory: Yes: Regular, CTA Bilaterally Gastrointestinal: Yes: Normal Bowel Sounds, Soft ...Rectal Exam: Yes: Deferred Genitourinary: Yes: WNL Breast(s): Yes: WNL Musculoskeletal: Yes: Muscle Weakness Edema: No Peripheral Pulses WNL: Yes Integumentary: Yes: WNL Neurological: Yes: Alert, Weakness ...Motor Strength: LUE (generalized muscle weakness of all extremities) Psychiatric: Yes: Alert Labs: CBC, BMP 05/08/20 05:53 05/08/20 05:53 - ....Imaging Other: Report Reviewed (lab data reviewed) Problem List - Problems (1) AMS (altered mental status) Code(s): R41.82 - ALTERED MENTAL STATUS, UNSPECIFIED Qualifiers: Altered mental status type: unspecified Qualified Code(s): R41.82 - Altered mental status, unspecified (2) Atrial fibrillation with RVR Code(s): I48.91 - UNSPECIFIED ATRIAL FIBRILLATION (3) Elevated INR Code(s): R79.1 - ABNORMAL COAGULATION PROFILE (4) Elevated troponin Code(s): R79.89 - OTHER SPECIFIED ABNORMAL FINDINGS OF BLOOD CHEMISTRY (5) Eosinophilia Code(s): D72.1 - EOSINOPHILIA (6) Fever Code(s): R50.9 - FEVER, UNSPECIFIED (7) Intracranial bleed Code(s): I62.9 - NONTRAUMATIC INTRACRANIAL HEMORRHAGE, UNSPECIFIED (8) Pneumonia Code(s): J18.9 - PNEUMONIA, UNSPECIFIED ORGANISM Qualifiers: Pneumonia type: due to unspecified organism Laterality: left Lung location: lower lobe of lung Qualified Code(s): J18.9 - Pneumonia, unspecified organism (9) Sepsis Code(s): A41.9 - SEPSIS, UNSPECIFIED ORGANISM Qualifiers: Sepsis type: sepsis due to unspecified organism Sepsis acute organ dysfunction status: with acute organ dysfunction Severe sepsis acute organ dysfunction type: unspecified Severe sepsis shock status: without septic shock Qualified Code(s): A41.9 - Sepsis, unspecified organism; R65.20 - Severe sepsis without septic shock (10) Suspected 2019 novel coronavirus infection Code(s): Z20.828 - CONTACT W AND EXPOSURE TO OTH VIRAL COMMUNICABLE DISEASES (11) Shortness of breath Code(s): R06.02 - SHORTNESS OF BREATH (12) Prerenal azotemia Code(s): R79.89 - OTHER SPECIFIED ABNORMAL FINDINGS OF BLOOD CHEMISTRY (13) Dehydration Code(s): E86.0 - DEHYDRATION (14) High serum lactic acid Code(s): R79.89 - OTHER SPECIFIED ABNORMAL FINDINGS OF BLOOD CHEMISTRY (15) Thrombocytopenia Code(s): D69.6 - THROMBOCYTOPENIA, UNSPECIFIED (16) Leukocytosis (leucocytosis) Code(s): D72.829 - ELEVATED WHITE BLOOD CELL COUNT, UNSPECIFIED Qualifiers: Leukocytosis type: unspecified Qualified Code(s): D72.829 - Elevated white blood cell count, unspecified (17) Hyponatremia Code(s): E87.1 - HYPO-OSMOLALITY AND HYPONATREMIA (18) Hypotension Code(s): I95.9 - HYPOTENSION, UNSPECIFIED Qualifiers: Hypotension type: hypotension due to hypovolemia Qualified Code(s): I95.89 - Other hypotension; E86.1 - Hypovolemia Assessment/Plan Assessment/plan: IV Ceftriaxone for UTI, urosepsis, non lactose fermenting GNB, low grade fever; a/c with Lovenox for high d-dimer; SQ Lovenox and oral pantoprazole for DVT/GI prophylaxis; IV Venofer for iron deficiency anemia; IV and oral metoprolol for atrial fibrillation with RVR; atorvastatin for HLD; IV fluids for dehydration; oral potassium chloride for hypokalemia; oral Furosemide for CHF, physical therapy for deconditioning; oxygen 2L/min via nasal cannula with spo2 97%, oral tylenol for low back pain.
[2020-05-08] MEDS ORDERED: DEXTROSE 5%-WATER - 50 ML IVPB ONE (09:12)
[2020-05-08] MEDS ORDERED: cefTRIAXone SODIUM 1 GM VIAL ONE (09:12)
--- NOTE | 2020-05-08 09:13 | PN ---
Progress Note, Physician History of Present Illness: This 89 yr old female with PMH of atrial fibrillation, dementia non- verbal, HTN, HLD, PPM, DVT, CHF, previous fall with SAH admitted via ER with shortness of breath, low back pain, fever, neutrophilic leukocytosis, high d- dimer, UTI, urosepsis, elevated lactic acid, prerenal azotemia, dehydration, hyponatremia, elevated troponin, anemia, and thrombocytopenia. Afebrile w/ improved hemodynamics and afib rate-controlled with metoprolol. Previous conclusion patient was not optimal a/c candidate. - Current Medication List Current Medications: Active Medications Acetaminophen (Tylenol -) 650 mg PO Q6H PRN PRN Reason: PAIN 1-10 Last Admin: 05/08/20 06:09 Dose: 650 mg Documented by: Atorvastatin Calcium (Lipitor -) 40 mg PO HS [facility] Last Admin: 05/07/20 21:05 Dose: 40 mg Documented by: Cholecalciferol (Vitamin D3 -) 5,000 unit PO DAILY [facility] Last Admin: 05/07/20 09:28 Dose: 5,000 unit Documented by: Enoxaparin Sodium (Lovenox -) 60 mg SQ Q24H [facility] Last Admin: 05/08/20 00:28 Dose: 60 mg Documented by: Furosemide (Lasix -) 40 mg PO DAILY [facility] Last Admin: 05/07/20 09:27 Dose: 40 mg Documented by: Potassium Chloride/Dextrose/Sod Cl (D5-1/2ns+10 Meq Kcl -) 10 meq in 1,000 mls @ 50 mls/hr IV ASDIR [facility] Last Admin: 05/08/20 06:09 Dose: Not Given Documented by: Ceftriaxone Sodium 1 gm/ (Dextrose) 50 mls @ 100 mls/hr IVPB DAILY [facility]; Protocol Last Admin: 05/07/20 09:27 Dose: 100 mls/hr Documented by: Metoprolol Tartrate (Lopressor -) 25 mg PO BID [facility] Last Admin: 05/07/20 21:05 Dose: 25 mg Documented by: Metoprolol Tartrate (Lopressor Injection -) 5 mg IVPUSH Q4H PRN PRN Reason: TACHYCARDIA Pantoprazole Sodium (Protonix -) 40 mg PO ACBK [facility] Last Admin: 05/08/20 06:09 Dose: 40 mg Documented by: - Objective Vital Signs: Vital Signs Temperature 100.3 F H 05/08/20 06:30 Pulse Rate 125 H 05/08/20 06:30 Respiratory Rate 16 05/08/20 06:30 Blood Pressure 113/68 05/08/20 06:30 O2 Sat by Pulse Oximetry (%) 99 05/08/20 06:30 Constitutional: Yes: No Distress, Calm Neck: Yes: Supple Cardiovascular: Yes: Pulse Irregular Respiratory: Yes: Regular, Diminished, On Nasal O2 Gastrointestinal: Yes: Soft, Hypoactive Bowel Sounds Edema: No Labs: CBC, BMP 05/08/20 05:53 05/08/20 05:53 - ....Imaging EKG: Report Reviewed (Tele: Rate-controlled afib) Problem List - Problems (1) Hyponatremia Code(s): E87.1 - HYPO-OSMOLALITY AND HYPONATREMIA (2) Hypotension Code(s): I95.9 - HYPOTENSION, UNSPECIFIED Qualifiers: Qualified Code(s): I95.89 - Other hypotension; E86.1 - Hypovolemia (3) Leukocytosis (leucocytosis) Code(s): D72.829 - ELEVATED WHITE BLOOD CELL COUNT, UNSPECIFIED Qualifiers: Qualified Code(s): D72.829 - Elevated white blood cell count, unspecified (4) Prerenal azotemia Code(s): R79.89 - OTHER SPECIFIED ABNORMAL FINDINGS OF BLOOD CHEMISTRY (5) Shortness of breath Code(s): R06.02 - SHORTNESS OF BREATH (6) AMS (altered mental status) Code(s): R41.82 - ALTERED MENTAL STATUS, UNSPECIFIED Qualifiers: Qualified Code(s): R41.82 - Altered mental status, unspecified (7) Atrial fibrillation with RVR Code(s): I48.91 - UNSPECIFIED ATRIAL FIBRILLATION (8) Sepsis Code(s): A41.9 - SEPSIS, UNSPECIFIED ORGANISM Qualifiers: Qualified Code(s): A41.9 - Sepsis, unspecified organism; R65.20 - Severe sepsis without septic shock Assessment/Plan 05/07/2020 Renal US: No sig hydronephrosis a/p: 89 f hx dementia, afib with RVR, ppm, htn, hld, here with dyspnea, leukocytosis, fever, pyuria and ISAIAS since improving 1. Persistent afib with RVR 2. Dementia 3. Previous fall with SAH not ideal a/c candidate 4. s/p PPM 5. HTN currently hypotensive 6. Hyperlipidemia 7. UTI 9. ISAIAS resolving 10. Demand ischemia P:1. Rate-control with metoprolol both oral and IV, trops downtrending, resume losartan once renal fxn stabilizes as hemodynamics tolerate 2. No longer on coumadin as patient is not ideal a/c candidate given previous falls, SAH, dementia, comfort measures 3. Empiric abx per C&S, monitor renal recovery 4. Continue Lipitor 40 qd, Lasix 40 qd with monitor diuretic response, renal fxn and electrolytes, replete K
[2020-05-08] MEDS: METOPROLOL TARTRATE 25 MG TABLET (FP) PO SCH ×2 (09:15→20:59)
[2020-05-08] MEDS: FUROSEMIDE 40 MG TABLET (FP) PO SCH (09:15)
[2020-05-08] MEDS: CHOLECALCIFEROL (VIT D3) 1,000 UNIT (25 MCG) TABLET PO SCH (09:16)
[2020-05-08] MEDS: CEFTRIAXONE 1 GM in DEXTROSE 5%-WATER - 50 ML IVPB SCH (09:16)
[2020-05-08] MEDS ORDERED: POTASSIUM CHLORIDE TABS 20 MEQ TABLET.ER (FP) PO ONE (09:35)
[2020-05-08] MEDS: ACETAMINOPHEN 325 MG TABLET (FP) PO SCH ×2 (11:18→17:40)
--- NOTE | 2020-05-08 17:17 | PN ---
Progress Note (short form) - Note Progress Note: low grade temp overnight no complaints Vital Signs Period Temp Pulse Resp BP Sys/Luu Pulse Ox Last 24 Hr 98.1 F-100.3 F 90-125 16-20 108-124/47-72 97-99 cor-rrr lungs clear abd soft,nt ext no edema CBC, BMP 05/08/20 05:53 05/08/20 05:53 Microbiology 05/06/20 01:12 Urine - Urine Clean Catch Urine Culture - Preliminary Escherichia Coli Esbl Block Engraver Lactose Fermenting Neg Bacilli 05/06/20 21:15 Blood - Peripheral Venous Blood Culture - Preliminary NO GROWTH OBTAINED AFTER 24 HOURS, INCUBATION TO CONTINUE FOR 4 DAYS. 05/06/20 21:00 Blood - Peripheral Venous Blood Culture - Preliminary NO GROWTH OBTAINED AFTER 24 HOURS, INCUBATION TO CONTINUE FOR 4 DAYS. a/p UTI mandy switch to ertapenem
[2020-05-08] MEDS: ERTAPENEM SODIUM 1 GM in SODIUM CHLORIDE 50 ML IVPB SCH (18:46)
[2020-05-08] MEDS: ATORVASTATIN CA 40 MG TABLET (FP) PO SCH (20:59)
[2020-05-09] MEDS: ENOXAPARIN NA (PORCINE) 60 MG/0.6 ML DISP.SYRIN SQ SCH (00:33)
[2020-05-09] MEDS: ACETAMINOPHEN 325 MG TABLET (FP) PO SCH ×4 (00:59→21:29)
[2020-05-09] MEDS: D5-1/2NS+10 MEQ KCL - 10 MEQ/1,000 ML INFUS.BAG IV SCH ×2 (05:33→14:22)
[2020-05-09] MEDS: PANTOPRAZOLE 40 MG TABLET PO SCH (06:05)
[2020-05-09 06:37] LABS: BASO % 0.8 % (0-2.0); EOS % 2.7 % (0-4.5); HEMATOCRIT 31.1 % (32.4-45.2); HEMOGLOBIN 9.7 GM/dL (10.7-15.3); LYMPH % 24.4 % (8-40); MCHC 31.1 g/dl (32.0-36.0); MEAN CELL VOLUME 70.6 fl (80-96); MEAN PLT VOLUME 8.7 fl (7.5-11.1); MONO % 8.8 % (3.8-10.2); NEUT % 63.3 % (42.8-82.8); PLATELET COUNT 132 K/MM3 (134-434); RDW 17.4 % (11.6-15.6); WHITE BLOOD COUNT 6.8 K/mm3 (4.0-10.0)
[2020-05-09 07:02] LABS: ALBUMIN 2.2 g/dl (3.4-5.0); BILIRUBIN,TOTAL 1.2 mg/dL (0.2-1); BLOOD UREA NITROGEN 14.4 mg/dL (7-18); CALCIUM 8.2 mg/dL (8.5-10.1); CREATININE 0.7 mg/dL (0.55-1.3); POTASSIUM 3.8 mmol/L (3.5-5.1); TOT PROT 5.6 g/dl (6.4-8.2)
--- NOTE | 2020-05-09 08:50 | PN ---
Progress Note, Physician Chief Complaint: Patient seen and examined at the bedside, no acute events from last night, afebrile, c/o slight diminution of low back pain. History of Present Illness: This 89 yr old w/f with PMH of atrial fibrillation, HTN, HLD, PPM, DVT, CHF, memory loss admitted via ER with an acute shortness of breath, low back pain, fever, neutrophilic leukocytosis, UTI, urosepsis, prerenal azotemia, dehydration, thrombocytopenia, elevated troponin, high d-dimer, hyponatremia, and elevated lactic acid. - Current Medication List Current Medications: Active Medications Acetaminophen (Tylenol -) 650 mg PO Q8H [facility] Last Admin: 05/09/20 03:26 Dose: Not Given Documented by: Atorvastatin Calcium (Lipitor -) 40 mg PO HS [facility] Last Admin: 05/08/20 20:59 Dose: 40 mg Documented by: Cholecalciferol (Vitamin D3 -) 5,000 unit PO DAILY [facility] Last Admin: 05/08/20 09:16 Dose: 5,000 unit Documented by: Enoxaparin Sodium (Lovenox -) 60 mg SQ Q24H [facility] Last Admin: 05/09/20 00:33 Dose: 60 mg Documented by: Furosemide (Lasix -) 40 mg PO DAILY [facility] Last Admin: 05/08/20 09:15 Dose: 40 mg Documented by: Potassium Chloride/Dextrose/Sod Cl (D5-1/2ns+10 Meq Kcl -) 10 meq in 1,000 mls @ 50 mls/hr IV ASDIR [facility] Last Admin: 05/09/20 05:33 Dose: Not Given Documented by: Ertapenem 1 gm/ Sodium (Chloride) 50 mls @ 100 mls/hr IVPB DAILY [facility] Last Admin: 05/08/20 18:46 Dose: 100 mls/hr Documented by: Metoprolol Tartrate (Lopressor -) 25 mg PO BID [facility] Last Admin: 05/08/20 20:59 Dose: 25 mg Documented by: Metoprolol Tartrate (Lopressor Injection -) 5 mg IVPUSH Q4H PRN PRN Reason: TACHYCARDIA Pantoprazole Sodium (Protonix -) 40 mg PO ACBK [facility] Last Admin: 05/09/20 06:05 Dose: 40 mg Documented by: - Objective Vital Signs: Vital Signs Temperature 98.1 F 05/09/20 06:00 Pulse Rate 93 H 05/09/20 06:00 Respiratory Rate 20 05/09/20 06:00 Blood Pressure 125/76 05/09/20 06:00 O2 Sat by Pulse Oximetry (%) 96 05/09/20 06:00 Constitutional: Yes: Well Nourished, Calm, Moderate Distress (low back pain) Eyes: Yes: Conjunctiva Clear, EOM Intact HENT: Yes: Atraumatic, Normocephalic Neck: Yes: Supple, Trachea Midline Cardiovascular: Yes: Pulse Irregular (atrial fibrillation) Respiratory: Yes: Regular, CTA Bilaterally Gastrointestinal: Yes: Normal Bowel Sounds, Soft ...Rectal Exam: Yes: Deferred Breast(s): Yes: WNL Musculoskeletal: Yes: Muscle Weakness Extremities: Yes: WNL Edema: No Peripheral Pulses WNL: Yes Integumentary: Yes: WNL Neurological: Yes: Alert, Weakness ...Motor Strength: LUE (generalized muscle weakness of all extremities) Psychiatric: Yes: Alert Labs: CBC, BMP 05/09/20 06:00 05/09/20 06:00 - ....Imaging Other: Report Reviewed (lab data reviewed) Problem List - Problems (1) AMS (altered mental status) Code(s): R41.82 - ALTERED MENTAL STATUS, UNSPECIFIED Qualifiers: Altered mental status type: unspecified Qualified Code(s): R41.82 - Altered mental status, unspecified (2) Atrial fibrillation with RVR Code(s): I48.91 - UNSPECIFIED ATRIAL FIBRILLATION (3) Elevated INR Code(s): R79.1 - ABNORMAL COAGULATION PROFILE (4) Elevated troponin Code(s): R79.89 - OTHER SPECIFIED ABNORMAL FINDINGS OF BLOOD CHEMISTRY (5) Eosinophilia Code(s): D72.1 - EOSINOPHILIA (6) Fever Code(s): R50.9 - FEVER, UNSPECIFIED (7) Intracranial bleed Code(s): I62.9 - NONTRAUMATIC INTRACRANIAL HEMORRHAGE, UNSPECIFIED (8) Pneumonia Code(s): J18.9 - PNEUMONIA, UNSPECIFIED ORGANISM Qualifiers: Pneumonia type: due to unspecified organism Laterality: left Lung location: lower lobe of lung Qualified Code(s): J18.9 - Pneumonia, unspecified organism (9) Sepsis Code(s): A41.9 - SEPSIS, UNSPECIFIED ORGANISM Qualifiers: Sepsis type: sepsis due to unspecified organism Sepsis acute organ dysfunction status: with acute organ dysfunction Severe sepsis acute organ dysfunction type: unspecified Severe sepsis shock status: without septic shock Qualified Code(s): A41.9 - Sepsis, unspecified organism; R65.20 - Severe sepsis without septic shock (10) Suspected 2019 novel coronavirus infection Code(s): Z20.828 - CONTACT W AND EXPOSURE TO [facility] VIRAL COMMUNICABLE DISEASES (11) Shortness of breath Code(s): R06.02 - SHORTNESS OF BREATH (12) Prerenal azotemia Code(s): R79.89 - OTHER SPECIFIED ABNORMAL FINDINGS OF BLOOD CHEMISTRY (13) Dehydration Code(s): E86.0 - DEHYDRATION (14) High serum lactic acid Code(s): R79.89 - OTHER SPECIFIED ABNORMAL FINDINGS OF BLOOD CHEMISTRY (15) Thrombocytopenia Code(s): D69.6 - THROMBOCYTOPENIA, UNSPECIFIED (16) Leukocytosis (leucocytosis) Code(s): D72.829 - ELEVATED WHITE BLOOD CELL COUNT, UNSPECIFIED Qualifiers: Leukocytosis type: unspecified Qualified Code(s): D72.829 - Elevated white blood cell count, unspecified (17) Hyponatremia Code(s): E87.1 - HYPO-OSMOLALITY AND HYPONATREMIA (18) Hypotension Code(s): I95.9 - HYPOTENSION, UNSPECIFIED Qualifiers: Hypotension type: hypotension due to hypovolemia Qualified Code(s): I95.89 - Other hypotension; E86.1 - Hypovolemia (19) Iron deficiency anemia Code(s): D50.9 - IRON DEFICIENCY ANEMIA, UNSPECIFIED Assessment/Plan Assessment/plan: acute shortness of breath, low back pain, fever, neutrophilic leukocytosis, UTI, urosepsis, prerenal azotemia, dehydration, thrombocytopenia, elevated troponin and lactic acid, high d-dimer, hyponatremia; 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
[2020-05-09] MEDS ORDERED: PT OWN MED DRAWER 7, Y5N ONE ×2 (09:09→09:42)
--- NOTE | 2020-05-09 09:16 | PN ---
Progress Note, Physician History of Present Illness: This 89 yr old female with PMH of atrial fibrillation, dementia non- verbal, HTN, HLD, PPM, DVT, CHF, previous fall with SAH admitted via ER with shortness of breath, low back pain, fever, neutrophilic leukocytosis, high d- dimer, UTI, urosepsis, elevated lactic acid, prerenal azotemia, dehydration, hyponatremia, elevated troponin, anemia, and thrombocytopenia. Afebrile w/ improved hemodynamics and afib rate-controlled with metoprolol, resting comfortably. Previous conclusion patient was not optimal a/c candidate. - Current Medication List Current Medications: Active Medications Acetaminophen (Tylenol -) 650 mg PO Q8H [facility] Last Admin: 05/09/20 03:26 Dose: Not Given Documented by: Atorvastatin Calcium (Lipitor -) 40 mg PO HS [facility] Last Admin: 05/08/20 20:59 Dose: 40 mg Documented by: Cholecalciferol (Vitamin D3 -) 5,000 unit PO DAILY [facility] Last Admin: 05/08/20 09:16 Dose: 5,000 unit Documented by: Enoxaparin Sodium (Lovenox -) 60 mg SQ Q24H [facility] Last Admin: 05/09/20 00:33 Dose: 60 mg Documented by: Furosemide (Lasix -) 40 mg PO DAILY [facility] Last Admin: 05/08/20 09:15 Dose: 40 mg Documented by: Potassium Chloride/Dextrose/Sod Cl (D5-1/2ns+10 Meq Kcl -) 10 meq in 1,000 mls @ 50 mls/hr IV ASDIR [facility] Last Admin: 05/09/20 05:33 Dose: Not Given Documented by: Ertapenem 1 gm/ Sodium (Chloride) 50 mls @ 100 mls/hr IVPB DAILY [facility] Last Admin: 05/08/20 18:46 Dose: 100 mls/hr Documented by: Metoprolol Tartrate (Lopressor -) 25 mg PO BID [facility] Last Admin: 05/08/20 20:59 Dose: 25 mg Documented by: Metoprolol Tartrate (Lopressor Injection -) 5 mg IVPUSH Q4H PRN PRN Reason: TACHYCARDIA Pantoprazole Sodium (Protonix -) 40 mg PO ACBK [facility] Last Admin: 05/09/20 06:05 Dose: 40 mg Documented by: - Objective Vital Signs: Vital Signs Temperature 98.1 F 05/09/20 06:00 Pulse Rate 93 H 05/09/20 06:00 Respiratory Rate 20 05/09/20 06:00 Blood Pressure 125/76 05/09/20 06:00 O2 Sat by Pulse Oximetry (%) 96 05/09/20 06:00 Constitutional: Yes: No Distress, Calm, Thin Neck: Yes: Supple Cardiovascular: Yes: Tachycardia, Pulse Irregular, Murmur Respiratory: Yes: Regular, Diminished, On Nasal O2 Gastrointestinal: Yes: Soft, Hypoactive Bowel Sounds Edema: No Labs: CBC, BMP 05/09/20 06:00 05/09/20 06:00 - ....Imaging EKG: Report Reviewed (Tele: Afib) Problem List - Problems (1) Hyponatremia Code(s): E87.1 - HYPO-OSMOLALITY AND HYPONATREMIA (2) Hypotension Code(s): I95.9 - HYPOTENSION, UNSPECIFIED Qualifiers: Hypotension type: hypotension due to hypovolemia Qualified Code(s): I95.89 - Other hypotension; E86.1 - Hypovolemia (3) Leukocytosis (leucocytosis) Code(s): D72.829 - ELEVATED WHITE BLOOD CELL COUNT, UNSPECIFIED Qualifiers: Leukocytosis type: unspecified Qualified Code(s): D72.829 - Elevated white blood cell count, unspecified (4) Prerenal azotemia Code(s): R79.89 - OTHER SPECIFIED ABNORMAL FINDINGS OF BLOOD CHEMISTRY (5) Shortness of breath Code(s): R06.02 - SHORTNESS OF BREATH (6) AMS (altered mental status) Code(s): R41.82 - ALTERED MENTAL STATUS, UNSPECIFIED Qualifiers: Altered mental status type: unspecified Qualified Code(s): R41.82 - Altered mental status, unspecified (7) Atrial fibrillation with RVR Code(s): I48.91 - UNSPECIFIED ATRIAL FIBRILLATION (8) Sepsis Code(s): A41.9 - SEPSIS, UNSPECIFIED ORGANISM Qualifiers: Sepsis type: sepsis due to unspecified organism Sepsis acute organ dysfunction status: with acute organ dysfunction Severe sepsis acute organ dysfunction type: unspecified Severe sepsis shock status: without septic shock Qualified Code(s): A41.9 - Sepsis, unspecified organism; R65.20 - Severe sepsis without septic shock Assessment/Plan 05/07/2020 Renal US: No sig hydronephrosis a/p: 89 f hx dementia, afib with RVR, ppm, htn, hld, here with dyspnea, leukocytosis, fever, pyuria and ISAIAS since improving 1. Persistent afib with RVR 2. Dementia 3. Previous fall with SAH not ideal a/c candidate 4. s/p PPM 5. HTN currently hypotensive 6. Hyperlipidemia 7. UTI 9. ISAIAS resolving 10. Demand ischemia P:1. Rate-control with increased metoprolol 50 po bid and IV as needed, trops downtrending, resume losartan once renal fxn stabilizes as hemodynamics tolerate 2. No longer on coumadin as patient is not ideal a/c candidate given previous falls, SAH, dementia, comfort measures 3. Empiric abx per C&S, monitor renal recovery 4. Continue Lipitor 40 qd, Lasix 40 qd with monitor diuretic response, renal fxn and electrolytes, replete K
[2020-05-09 09:26] LABS: ANISOCYTOSIS 3+; MACROCYTOSIS 0; PLATELET ESTIMATE DECREASED; TARGET CELLS 1+
[2020-05-09] MEDS: ERTAPENEM SODIUM 1 GM in SODIUM CHLORIDE 50 ML IVPB SCH (09:27)
[2020-05-09] MEDS: FUROSEMIDE 40 MG TABLET (FP) PO SCH (09:27)
[2020-05-09] MEDS: METOPROLOL TARTRATE 25 MG TABLET (FP) PO SCH (09:27)
[2020-05-09] MEDS: CHOLECALCIFEROL (VIT D3) 1,000 UNIT (25 MCG) TABLET PO SCH (09:28)
[2020-05-09] MEDS: oxyCODONE HCL 5 MG TABLET PO SCH ×2 (14:03→21:29)
[2020-05-09] MEDS: METOPROLOL TARTRATE 50 MG TABLET (FP) PO SCH (21:29)
[2020-05-09] MEDS: ATORVASTATIN CA 40 MG TABLET (FP) PO SCH (21:29)
[2020-05-10] MEDS: ENOXAPARIN NA (PORCINE) 60 MG/0.6 ML DISP.SYRIN SQ SCH ×2 (00:26→23:29)
[2020-05-10] MEDS: ACETAMINOPHEN 325 MG TABLET (FP) PO SCH ×3 (06:29→21:44)
[2020-05-10] MEDS: oxyCODONE HCL 5 MG TABLET PO SCH ×3 (06:29→21:43)
[2020-05-10] MEDS: PANTOPRAZOLE 40 MG TABLET PO SCH (06:29)
[2020-05-10] MEDS: D5-1/2NS+10 MEQ KCL - 10 MEQ/1,000 ML INFUS.BAG IV SCH (07:48)
[2020-05-10 08:17] LABS: BASO % 0.7 % (0-2.0); EOS % 1.9 % (0-4.5); HEMATOCRIT 30.9 % (32.4-45.2); HEMOGLOBIN 9.6 GM/dL (10.7-15.3); LYMPH % 19.1 % (8-40); MCH 22.2 pg (25.7-33.7); MCHC 31.1 g/dl (32.0-36.0); MEAN CELL VOLUME 71.4 fl (80-96); MEAN PLT VOLUME 9.2 fl (7.5-11.1); NEUT % 71.3 % (42.8-82.8); PLATELET COUNT 169 K/MM3 (134-434); RBC 4.33 M/mm3 (3.60-5.2); RDW 17.4 % (11.6-15.6); WHITE BLOOD COUNT 7.7 K/mm3 (4.0-10.0)
[2020-05-10 08:24] LABS: ALBUMIN 2.2 g/dl (3.4-5.0); BILIRUBIN,TOTAL 0.9 mg/dL (0.2-1); BLOOD UREA NITROGEN 13.6 mg/dL (7-18); CALCIUM 8.1 mg/dL (8.5-10.1); CREATININE 0.6 mg/dL (0.55-1.3); POTASSIUM 3.9 mmol/L (3.5-5.1); TOT PROT 5.7 g/dl (6.4-8.2)
--- NOTE | 2020-05-10 09:36 | PN ---
Progress Note, Physician Chief Complaint: Pt A&Ox3; no chest pain, dyspnea, or palpitations; c/o left hand pain and swelling (-->IV site in hand to be changed). History of Present Illness: Ms. Osborne is an 89 yr old female (b. [place]), with PMH of atrial fibrillation, HTN, HLD, PPM, DVT, CHF, previous fall with SAH with residual left arm weakness (regained ability to walk), admitted via ER with shortness of breath, right shoulder and low back pain, fever, neutrophilic leukocytosis, high d-dimer, UTI, urosepsis, elevated lactic acid, prerenal azotemia, dehydration, hyponatremia, elevated troponin, anemia, and thrombocytopenia. Afebrile w/ improved hemodynamics and afib rate-controlled with metoprolol, resting comfortably. Previous conclusion patient was not optima l a/c candidate. 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 Sarath Hill - Current Medication List Current Medications: Active Medications Acetaminophen (Tylenol -) 325 mg PO TID [facility] Last Admin: 05/10/20 06:29 Dose: 325 mg Documented by: Atorvastatin Calcium (Lipitor -) 40 mg PO HS [facility] Last Admin: 05/09/20 21:29 Dose: 40 mg Documented by: Cholecalciferol (Vitamin D3 -) 5,000 unit PO DAILY [facility] Last Admin: 05/09/20 09:28 Dose: 5,000 unit Documented by: Enoxaparin Sodium (Lovenox -) 60 mg SQ Q24H [facility] Last Admin: 05/10/20 00:26 Dose: 60 mg Documented by: Furosemide (Lasix -) 40 mg PO DAILY [facility] Last Admin: 05/09/20 09:27 Dose: 40 mg Documented by: Potassium Chloride/Dextrose/Sod Cl (D5-1/2ns+10 Meq Kcl -) 10 meq in 1,000 mls @ 50 mls/hr IV ASDIR [facility] Last Admin: 05/10/20 07:48 Dose: Not Given Documented by: Ertapenem 1 gm/ Sodium (Chloride) 50 mls @ 100 mls/hr IVPB DAILY [facility] Last Admin: 05/09/20 09:27 Dose: 100 mls/hr Documented by: Metoprolol Tartrate (Lopressor Injection -) 5 mg IVPUSH Q4H PRN PRN Reason: TACHYCARDIA Metoprolol Tartrate (Lopressor -) 50 mg PO BID [facility] Last Admin: 05/09/20 21:29 Dose: 50 mg Documented by: Oxycodone HCl (Roxicodone -) 5 mg PO TID [facility] Last Admin: 05/10/20 06:29 Dose: 5 mg Documented by: Pantoprazole Sodium (Protonix -) 40 mg PO ACBK [facility] Last Admin: 05/10/20 06:29 Dose: 40 mg Documented by: - Objective Vital Signs: Vital Signs Temperature 98.7 F 05/10/20 06:00 Pulse Rate 104 H 05/10/20 06:00 Respiratory Rate 05/10/20 06:00 Blood Pressure 135/73 05/10/20 06:00 O2 Sat by Pulse Oximetry (%) 99 05/10/20 06:00 Constitutional: Yes: Anxious, Thin Eyes: Yes: WNL HENT: Yes: WNL Neck: Yes: WNL Cardiovascular: Yes: S1 (varies in intensity), S2 Respiratory: Yes: WNL Gastrointestinal: Yes: Soft ...Rectal Exam: Yes: Deferred Genitourinary: No: Anuria Breast(s): Yes: WNL Musculoskeletal: Yes: Muscle Weakness Extremities: Yes: Other (left arm very weak (able to move it slightly; lifts it by using right arm)) Edema: Yes Edema: RUE: 1+ (hand (IV site: fluids stopped; site to be changed)) Peripheral Pulses WNL: Yes Neurological: Yes: WNL Psychiatric: Yes: WNL Labs: CBC, BMP 05/10/20 07:15 05/10/20 07:15 Abnormal Lab Results 05/10/20 05/10/20 05/10/20 07:15 07:15 07:15 Hgb 9.6 L Hct 30.9 L MCV 71.4 L MCH 22.2 L MCHC 31.1 L RDW 17.4 H D-Dimer 1221 H Anion Gap 6 L Random Glucose 107 H Calcium 8.1 L Alkaline Phosphatase 202 H Total Protein 5.7 L Albumin 2.2 L - ....Imaging EKG: Pending Other: Image Reviewed (telemetry: AF; HR 90-low 100s bpm) Assessment/Plan a/p: 89 f hx dementia, afib with RVR, ppm, htn, hld, here with dyspnea, leukocytosis, fever, pyuria and ISAIAS since improving 1. Persistent afib with RVR 2. Dementia (though presently A&OX3) 3. Previous fall with SAH with residual left arm weakness;not ideal a/c candidate 4. s/p PPM ([employer] initially placed 1997; latest battery replacement ?2015; last checked 6 months ago). 5. HTN; initially hypotensive 6. Hyperlipidemia 7. UTI 9. ISAIAS resolving 10. Demand ischemia P:1. Rate-control with increased metoprolol 50 po bid and IV as needed, trops d ecreasing. Losartan 25 mg daily started (BUN/Cr, electrolytes WNL; no longer hypotensive) 2. No longer on coumadin as patient is not ideal a/c candidate given previous falls, SAH, dementia, comfort measures 3. Empiric abx per C&S, monitor renal recovery 4. Continue Lipitor 40 qd, Lasix 40 qd with monitor diuretic response, renal fxn and electrolytes, replete K 5. F/u EKG; plan on PPM interrogation
[2020-05-10] MEDS ORDERED: PT OWN MED DRAWER 7, Y5N ONE (09:40)
[2020-05-10] MEDS: LOSARTAN POTASSIUM 50 MG TABLET (FP) PO SCH (10:08)
[2020-05-10] MEDS: ERTAPENEM SODIUM 1 GM in SODIUM CHLORIDE 50 ML IVPB SCH (10:08)
[2020-05-10] MEDS: FUROSEMIDE 40 MG TABLET (FP) PO SCH (10:09)
[2020-05-10] MEDS: CHOLECALCIFEROL (VIT D3) 1,000 UNIT (25 MCG) TABLET PO SCH (10:09)
[2020-05-10] MEDS: METOPROLOL TARTRATE 50 MG TABLET (FP) PO SCH ×2 (10:09→21:42)
[2020-05-10 10:26] LABS: ANISOCYTOSIS 1+; MACROCYTOSIS 0; PLATELET ESTIMATE NORMAL
--- NOTE | 2020-05-10 12:37 | PN ---
Progress Note, Physician Chief Complaint: Patient seen and examined at the bedside, no acute events from last night, c/o constipation, low back pain markedly improved. History of Present Illness: This 89 yr old w/f with PMH of atrial fibrillation, dementia, HTN, HLD, PPM, DVT, CHF, memory loss admitted via ER with an acute shortness of breath, low back pain, fever, neutrophilic leukocytosis, prerenal azotemia, dehydration, thrombocytopenia, elevated troponin, high d-dimer, UTI, urosepsis, hyponatremia and elevated uric acid. - Current Medication List Current Medications: Active Medications Acetaminophen (Tylenol -) 325 mg PO TID [facility] Last Admin: 05/10/20 06:29 Dose: 325 mg Documented by: Atorvastatin Calcium (Lipitor -) 40 mg PO HS [facility] Last Admin: 05/09/20 21:29 Dose: 40 mg Documented by: Cholecalciferol (Vitamin D3 -) 5,000 unit PO DAILY [facility] Last Admin: 05/10/20 10:09 Dose: 5,000 unit Documented by: Enoxaparin Sodium (Lovenox -) 60 mg SQ Q24H [facility] Last Admin: 05/10/20 00:26 Dose: 60 mg Documented by: Furosemide (Lasix -) 40 mg PO DAILY [facility] Last Admin: 05/10/20 10:09 Dose: 40 mg Documented by: Potassium Chloride/Dextrose/Sod Cl (D5-1/2ns+10 Meq Kcl -) 10 meq in 1,000 mls @ 50 mls/hr IV ASDIR [facility] Last Admin: 05/10/20 07:48 Dose: Not Given Documented by: Ertapenem 1 gm/ Sodium (Chloride) 50 mls @ 100 mls/hr IVPB DAILY [facility] Last Admin: 05/10/20 10:08 Dose: 100 mls/hr Documented by: Losartan Potassium (Cozaar -) 25 mg PO DAILY [facility] Last Admin: 05/10/20 10:08 Dose: 25 mg Documented by: Metoprolol Tartrate (Lopressor Injection -) 5 mg IVPUSH Q4H PRN PRN Reason: TACHYCARDIA Metoprolol Tartrate (Lopressor -) 50 mg PO BID [facility] Last Admin: 05/10/20 10:09 Dose: 50 mg Documented by: Oxycodone HCl (Roxicodone -) 5 mg PO TID [facility] Last Admin: 05/10/20 06:29 Dose: 5 mg Documented by: Pantoprazole Sodium (Protonix -) 40 mg PO ACBK [facility] Last Admin: 05/10/20 06:29 Dose: 40 mg Documented by: - Objective Vital Signs: Vital Signs Temperature 98.1 F 05/10/20 10:12 Pulse Rate 110 H 05/10/20 10:12 Respiratory Rate 19 05/10/20 10:12 Blood Pressure 118/73 05/10/20 10:12 O2 Sat by Pulse Oximetry (%) 99 05/10/20 10:12 Constitutional: Yes: Well Nourished, Calm, Mild Distress Eyes: Yes: Conjunctiva Clear, EOM Intact HENT: Yes: Atraumatic, Normocephalic Neck: Yes: Supple, Trachea Midline Cardiovascular: Yes: Pulse Irregular (atrial fibrillation) Respiratory: Yes: Regular, CTA Bilaterally Gastrointestinal: Yes: Normal Bowel Sounds, Soft ...Rectal Exam: Yes: Deferred Genitourinary: Yes: WNL Breast(s): Yes: WNL Musculoskeletal: Yes: Muscle Weakness Extremities: Yes: WNL Edema: No Peripheral Pulses WNL: Yes Integumentary: Yes: WNL Neurological: Yes: Alert, Weakness ...Motor Strength: LUE (generalized muscle weaknes of all extremities) Labs: CBC, BMP 05/10/20 07:15 05/10/20 07:15 - ....Imaging Other: Report Reviewed (lab data reviewed) Problem List - Problems (1) AMS (altered mental status) Code(s): R41.82 - ALTERED MENTAL STATUS, UNSPECIFIED Qualifiers: Altered mental status type: unspecified Qualified Code(s): R41.82 - Altered mental status, unspecified (2) Atrial fibrillation with RVR Code(s): I48.91 - UNSPECIFIED ATRIAL FIBRILLATION (3) Elevated INR Code(s): R79.1 - ABNORMAL COAGULATION PROFILE (4) Elevated troponin Code(s): R79.89 - OTHER SPECIFIED ABNORMAL FINDINGS OF BLOOD CHEMISTRY (5) Eosinophilia Code(s): D72.1 - EOSINOPHILIA (6) Fever Code(s): R50.9 - FEVER, UNSPECIFIED (7) Intracranial bleed Code(s): I62.9 - NONTRAUMATIC INTRACRANIAL HEMORRHAGE, UNSPECIFIED (8) Pneumonia Code(s): J18.9 - PNEUMONIA, UNSPECIFIED ORGANISM Qualifiers: Pneumonia type: due to unspecified organism Laterality: left Lung location: lower lobe of lung Qualified Code(s): J18.9 - Pneumonia, unspecified organism (9) Sepsis Code(s): A41.9 - SEPSIS, UNSPECIFIED ORGANISM Qualifiers: Sepsis type: sepsis due to unspecified organism Sepsis acute organ dysfunction status: with acute organ dysfunction Severe sepsis acute organ dysfunction type: unspecified Severe sepsis shock status: without septic shock Qualified Code(s): A41.9 - Sepsis, unspecified organism; R65.20 - Severe sepsis without septic shock (10) Suspected 2019 novel coronavirus infection Code(s): Z20.828 - CONTACT W AND EXPOSURE TO [facility] VIRAL COMMUNICABLE DISEASES (11) Shortness of breath Code(s): R06.02 - SHORTNESS OF BREATH (12) Prerenal azotemia Code(s): R79.89 - OTHER SPECIFIED ABNORMAL FINDINGS OF BLOOD CHEMISTRY (13) Dehydration Code(s): E86.0 - DEHYDRATION (14) High serum lactic acid Code(s): R79.89 - OTHER SPECIFIED ABNORMAL FINDINGS OF BLOOD CHEMISTRY (15) Thrombocytopenia Code(s): D69.6 - THROMBOCYTOPENIA, UNSPECIFIED (16) Leukocytosis (leucocytosis) Code(s): D72.829 - ELEVATED WHITE BLOOD CELL COUNT, UNSPECIFIED Qualifiers: Leukocytosis type: unspecified Qualified Code(s): D72.829 - Elevated white blood cell count, unspecified (17) Hyponatremia Code(s): E87.1 - HYPO-OSMOLALITY AND HYPONATREMIA (18) Hypotension Code(s): I95.9 - HYPOTENSION, UNSPECIFIED Qualifiers: Hypotension type: hypotension due to hypovolemia Qualified Code(s): I95.89 - Other hypotension; E86.1 - Hypovolemia (19) Iron deficiency anemia Code(s): D50.9 - IRON DEFICIENCY ANEMIA, UNSPECIFIED Assessment/Plan Assessment/plan: 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
[2020-05-10] MEDS: POLYETHYLENE GLYCOL 3350 119 GM BTL PO SCH (13:55)
[2020-05-10] MEDS: ATORVASTATIN CA 40 MG TABLET (FP) PO SCH (21:44)
[2020-05-11] MEDS: D5-1/2NS+10 MEQ KCL - 10 MEQ/1,000 ML INFUS.BAG IV SCH (06:23)
[2020-05-11] MEDS: oxyCODONE HCL 5 MG TABLET PO SCH ×2 (06:24→13:31)
[2020-05-11] MEDS: ACETAMINOPHEN 325 MG TABLET (FP) PO SCH ×3 (06:24→22:00)
[2020-05-11] MEDS: PANTOPRAZOLE 40 MG TABLET PO SCH (06:36)
[2020-05-11 08:24] LABS: BASO % 0.8 % (0-2.0); HEMATOCRIT 30.3 % (32.4-45.2); HEMOGLOBIN 9.6 GM/dL (10.7-15.3); LYMPH % 20.6 % (8-40); MCH 22.3 pg (25.7-33.7); MCHC 31.7 g/dl (32.0-36.0); MEAN CELL VOLUME 70.4 fl (80-96); MEAN PLT VOLUME 8.6 fl (7.5-11.1); MONO % 5.1 % (3.8-10.2); NEUT % 71.5 % (42.8-82.8); PLATELET COUNT 228 K/MM3 (134-434); RDW 17.7 % (11.6-15.6); WHITE BLOOD COUNT 7.9 K/mm3 (4.0-10.0)
[2020-05-11 08:49] LABS: ALBUMIN 2.3 g/dl (3.4-5.0); BILIRUBIN,TOTAL 0.9 mg/dL (0.2-1); BLOOD UREA NITROGEN 9.6 mg/dL (7-18); CALCIUM 8.6 mg/dL (8.5-10.1); CREATININE 0.6 mg/dL (0.55-1.3); POTASSIUM 3.8 mmol/L (3.5-5.1); TOT PROT 6.1 g/dl (6.4-8.2)
[2020-05-11] MEDS: METOPROLOL TARTRATE 5 MG/5 ML VIAL IVPUSH PRN (08:59)
[2020-05-11] MEDS: LOSARTAN POTASSIUM 50 MG TABLET (FP) PO SCH (09:08)
[2020-05-11] MEDS: METOPROLOL TARTRATE 50 MG TABLET (FP) PO SCH ×2 (09:08→22:00)
[2020-05-11] MEDS: FUROSEMIDE 40 MG TABLET (FP) PO SCH (09:08)
[2020-05-11] MEDS: CHOLECALCIFEROL (VIT D3) 1,000 UNIT (25 MCG) TABLET PO SCH (09:09)
[2020-05-11] MEDS: POLYETHYLENE GLYCOL 3350 119 GM BTL PO SCH (09:11)
[2020-05-11 10:18] LABS: ANISOCYTOSIS 2+; MACROCYTOSIS 0; PLATELET ESTIMATE NORMAL
[2020-05-11] MEDS: ERTAPENEM SODIUM 1 GM in SODIUM CHLORIDE 50 ML IVPB SCH (11:02)
--- NOTE | 2020-05-11 11:51 | PN ---
Progress Note, Physician Chief Complaint: Patient seen and examined at the bedside, no acute events from last night, afebrile. History of Present Illness: This 89 yr old w/f with PMH of atrial fibrillation, dementia, HTN, HLD, PPM, DVT, CHF, memory loss admitted via ER with an acute shortness of breath, low back pain, fever, neutrophilic leukocytosis, UTI, prerenal azotemia, dehydration, thrombocytopenia, elevated troponin, high d-dimer, hyponatremia, and an elevated lactic acid. - Current Medication List Current Medications: Active Medications Acetaminophen (Tylenol -) 325 mg PO TID [facility] Last Admin: 05/11/20 06:24 Dose: Not Given Documented by: Atorvastatin Calcium (Lipitor -) 40 mg PO HS [facility] Last Admin: 05/10/20 21:44 Dose: 40 mg Documented by: Cholecalciferol (Vitamin D3 -) 5,000 unit PO DAILY [facility] Last Admin: 05/11/20 09:09 Dose: 5,000 unit Documented by: Enoxaparin Sodium (Lovenox -) 60 mg SQ Q24H [facility] Last Admin: 05/10/20 23:29 Dose: 60 mg Documented by: Furosemide (Lasix -) 40 mg PO DAILY [facility] Last Admin: 05/11/20 09:08 Dose: 40 mg Documented by: Potassium Chloride/Dextrose/Sod Cl (D5-1/2ns+10 Meq Kcl -) 10 meq in 1,000 mls @ 50 mls/hr IV ASDIR [facility] Last Admin: 05/11/20 06:23 Dose: Not Given Documented by: Ertapenem 1 gm/ Sodium (Chloride) 50 mls @ 100 mls/hr IVPB DAILY [facility] Last Admin: 05/11/20 11:02 Dose: 100 mls/hr Documented by: Losartan Potassium (Cozaar -) 25 mg PO DAILY [facility] Last Admin: 05/11/20 09:08 Dose: 25 mg Documented by: Metoprolol Tartrate (Lopressor Injection -) 5 mg IVPUSH Q4H PRN PRN Reason: TACHYCARDIA Last Admin: 05/11/20 08:59 Dose: 5 mg Documented by: Metoprolol Tartrate (Lopressor -) 50 mg PO BID [facility] Last Admin: 05/11/20 09:08 Dose: 50 mg Documented by: Oxycodone HCl (Roxicodone -) 5 mg PO TID [facility] Last Admin: 05/11/20 06:24 Dose: Not Given Documented by: Pantoprazole Sodium (Protonix -) 40 mg PO ACBK [facility] Last Admin: 05/11/20 06:36 Dose: 40 mg Documented by: Polyethylene Glycol (Miralax (For Daily Use) -) 17 gm PO DAILY [facility] Last Admin: 05/11/20 09:11 Dose: 17 gm Documented by: - Objective Vital Signs: Vital Signs Temperature 97.8 F 05/11/20 09:13 Pulse Rate 102 H 05/11/20 09:13 Respiratory Rate 18 05/11/20 09:13 Blood Pressure 129/81 05/11/20 09:13 O2 Sat by Pulse Oximetry (%) 98 05/11/20 09:13 Constitutional: Yes: Well Nourished, No Distress, Calm Eyes: Yes: Conjunctiva Clear, EOM Intact HENT: Yes: Atraumatic, Normocephalic Neck: Yes: Supple, Trachea Midline Cardiovascular: Yes: Pulse Irregular (atrial fibrillation) Respiratory: Yes: Regular, CTA Bilaterally Gastrointestinal: Yes: Normal Bowel Sounds, Soft ...Rectal Exam: Yes: Deferred Genitourinary: Yes: WNL Breast(s): Yes: WNL Musculoskeletal: Yes: Muscle Weakness Extremities: Yes: WNL Edema: No Peripheral Pulses WNL: Yes Integumentary: Yes: WNL Neurological: Yes: Alert, Oriented ...Motor Strength: LLE (muscle weakness), RLE (muscle weakness) Psychiatric: Yes: Alert, Oriented Labs: CBC, BMP 05/11/20 06:36 05/11/20 06:36 - ....Imaging Other: Report Reviewed (lab data reviewed) Problem List - Problems (1) AMS (altered mental status) Code(s): R41.82 - ALTERED MENTAL STATUS, UNSPECIFIED Qualifiers: Altered mental status type: unspecified Qualified Code(s): R41.82 - Altered mental status, unspecified (2) Atrial fibrillation with RVR Code(s): I48.91 - UNSPECIFIED ATRIAL FIBRILLATION (3) Elevated INR Code(s): R79.1 - ABNORMAL COAGULATION PROFILE (4) Elevated troponin Code(s): R79.89 - OTHER SPECIFIED ABNORMAL FINDINGS OF BLOOD CHEMISTRY (5) Eosinophilia Code(s): D72.1 - EOSINOPHILIA (6) Fever Code(s): R50.9 - FEVER, UNSPECIFIED (7) Intracranial bleed Code(s): I62.9 - NONTRAUMATIC INTRACRANIAL HEMORRHAGE, UNSPECIFIED (8) Pneumonia Code(s): J18.9 - PNEUMONIA, UNSPECIFIED ORGANISM Qualifiers: Pneumonia type: due to unspecified organism Laterality: left Lung location: lower lobe of lung Qualified Code(s): J18.9 - Pneumonia, unspecified organism (9) Sepsis Code(s): A41.9 - SEPSIS, UNSPECIFIED ORGANISM Qualifiers: Sepsis type: sepsis due to unspecified organism Sepsis acute organ dysfunction status: with acute organ dysfunction Severe sepsis acute organ dysfunction type: unspecified Severe sepsis shock status: without septic shock Qualified Code(s): A41.9 - Sepsis, unspecified organism; R65.20 - Severe se psis without septic shock (10) Suspected 2019 novel coronavirus infection Code(s): Z20.828 - CONTACT W AND EXPOSURE TO [facility] VIRAL COMMUNICABLE DISEASES (11) Shortness of breath Code(s): R06.02 - SHORTNESS OF BREATH (12) Prerenal azotemia Code(s): R79.89 - OTHER SPECIFIED ABNORMAL FINDINGS OF BLOOD CHEMISTRY (13) Dehydration Code(s): E86.0 - DEHYDRATION (14) High serum lactic acid Code(s): R79.89 - OTHER SPECIFIED ABNORMAL FINDINGS OF BLOOD CHEMISTRY (15) Thrombocytopenia Code(s): D69.6 - THROMBOCYTOPENIA, UNSPECIFIED (16) Leukocytosis (leucocytosis) Code(s): D72.829 - ELEVATED WHITE BLOOD CELL COUNT, UNSPECIFIED Qualifiers: Leukocytosis type: unspecified Qualified Code(s): D72.829 - Elevated white blood cell count, unspecified (17) Hyponatremia Code(s): E87.1 - HYPO-OSMOLALITY AND HYPONATREMIA (18) Hypotension Code(s): I95.9 - HYPOTENSION, UNSPECIFIED Qualifiers: Hypotension type: hypotension due to hypovolemia Qualified Code(s): I95.89 - Other hypotension; E86.1 - Hypovolemia (19) Iron deficiency anemia Code(s): D50.9 - IRON DEFICIENCY ANEMIA, UNSPECIFIED Assessment/Plan Assessment/plan: acute dyspnea, low back pain, fever, neutrophilic leukocytosis, prerenal azotemia, dehydration, thrombocytopenia, elevated troponin and lactic acid, high d-dimer (1228), UTI E Coli esbl strategy lead plus Klebsieall Pneumoniae, hyponatremia, atrial fibrillation, dementia, HTN, HLD, PPM, DVT, CHF, memory loss; IV Ertapenem for an acute UTI; SQ Lovenox and oral pantoprazole for DVT/GI prophylaxis; a/c with Lovenox; atorvastatin for HLD; losartain for HTN; oral and IV metoprolol for heart rate control; oxycodone for low back pain; physical therapy for deconditioning; Miralax and dulcolax supp for constipation.
[2020-05-11] MEDS ORDERED: BISACODYL 10 MG SUPP.RECT PR ONE (12:46)
--- NOTE | 2020-05-11 13:55 | PN ---
Progress Note, Physician Chief Complaint: Pt's granddaugther is present, and puts her mother on the phone. Pt called daughter at 2 am wanting food, and several more times (at 4 am, she thought it was 4pm). Pt now says the staff her needs to have beds so they can sleep well; disoriented x 3. Pt's daughter says pt's physical and mental state have deteriorated rapidly since the of her a few months ago (they had been 67 yrs), though she has remained quite alert and oriented until today. Pt's RN noted pt's HR increased suddently to 160s bpm this morning when pt was trying to get up out of bed herself. History of Present Illness: Ms. Osborne is an 89 yr old female (b. 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 Afebrile w/ improved hemodynamics and afib rate-controlled with metoprolol, resting comfortably. Previous conclusion patient was not optimal a/c candidate. Fire Sprinkler Apparatus Inspector: Dr. Sarath Hill - Current Medication List Current Medications: Active Medications Acetaminophen (Tylenol -) 325 mg PO TID [facility] Last Admin: 05/11/20 13:32 Dose: 325 mg Documented by: Atorvastatin Calcium (Lipitor -) 40 mg PO HS [facility] Last Admin: 05/10/20 21:44 Dose: 40 mg Documented by: Cholecalciferol (Vitamin D3 -) 5,000 unit PO DAILY [facility] Last Admin: 05/11/20 09:09 Dose: 5,000 unit Documented by: Enoxaparin Sodium (Lovenox -) 60 mg SQ Q24H [facility] Last Admin: 05/10/20 23:29 Dose: 60 mg Documented by: Furosemide (Lasix -) 40 mg PO DAILY [facility] Last Admin: 05/11/20 09:08 Dose: 40 mg Documented by: Ertapenem 1 gm/ Sodium (Chloride) 50 mls @ 100 mls/hr IVPB DAILY [facility] Last Admin: 05/11/20 11:02 Dose: 100 mls/hr Documented by: Losartan Potassium (Cozaar -) 25 mg PO DAILY [facility] Last Admin: 05/11/20 09:08 Dose: 25 mg Documented by: Metoprolol Tartrate (Lopressor Injection -) 5 mg IVPUSH Q4H PRN PRN Reason: TACHYCARDIA Last Admin: 05/11/20 08:59 Dose: 5 mg Documented by: Metoprolol Tartrate (Lopressor -) 50 mg PO BID [facility] Last Admin: 05/11/20 09:08 Dose: 50 mg Documented by: Oxycodone HCl (Roxicodone -) 5 mg PO TID [facility] Last Admin: 05/11/20 13:31 Dose: 5 mg Documented by: Pantoprazole Sodium (Protonix -) 40 mg PO ACBK [facility] Last Admin: 05/11/20 06:36 Dose: 40 mg Documented by: Polyethylene Glycol (Miralax (For Daily Use) -) 17 gm PO DAILY [facility] Last Admin: 05/11/20 09:11 Dose: 17 gm Documented by: - Objective Vital Signs: Vital Signs Temperature 97.8 F 05/11/20 09:13 Pulse Rate 102 H 05/11/20 09:13 Respiratory Rate 18 05/11/20 09:13 Blood Pressure 129/81 05/11/20 09:13 O2 Sat by Pulse Oximetry (%) 98 05/11/20 09:13 Eyes: Yes: Conjunctiva Clear HENT: Yes: WNL, Atraumatic, Normocephalic Neck: Yes: WNL, Supple, Trachea Midline Cardiovascular: Yes: WNL, Regular Rate and Rhythm Respiratory: Yes: WNL, Regular, CTA Bilaterally Gastrointestinal: Yes: WNL, Normal Bowel Sounds ...Rectal Exam: Yes: Deferred Genitourinary: No: Anuria Breast(s): Yes: WNL Musculoskeletal: Yes: WNL Extremities: Yes: WNL Edema: No Peripheral Pulses WNL: Yes Integumentary: Yes: WNL Neurological: Yes: WNL, Alert, Oriented ...Motor Strength: WNL Psychiatric: Yes: WNL Labs: CBC, BMP 05/11/20 06:36 05/11/20 06:36 - ....Imaging Chest X-ray: Image Reviewed EKG: Image Reviewed Assessment/Plan a/p: 89 f hx dementia, afib with RVR, ppm, htn, hld, here with dyspnea, leukocytosis, fever, pyuria and ISAIAS since improving Acute disoriented state: hospital setting-related. Persistent afib with RVR (HR to 160s bpm reoccurred today when pt became agitated and tried to sit up in the morning; it was alleviated with metoprolol IVP, then regular PO dose). Dementia (though presently A&OX3) Previous fall with SAH with residual left arm weakness;not ideal a/c candidate s/p PPM ([facility] initially placed 1997; latest battery replacement ?2015; last checked 6 months ago). HTN; initially hypotensive Hyperlipidemia UTI ISAIAS resolving Demand ischemia PL: Rate-control with increased metoprolol to 75 po bid today and IV as needed, trops decreasing. Losartan 25 mg daily started (BUN/Cr, electrolytes WNL; no longer hypotensive) No longer on coumadin as patient is not ideal a/c candidate given previous falls, SAH, dementia, comfort measures Empiric abx per C&S, monitor renal recovery Continue Lipitor 40 qd, Lasix 40 qd with monitor diuretic response, renal fxn and electrolytes, replete K F/u EKG; plan on PPM interrogation
[2020-05-11] MEDS ORDERED: METOPROLOL TARTRATE 25 MG TABLET (FP) PO ONE (14:52)
[2020-05-11] MEDS ORDERED: ACETAMINOPHEN 325 MG TABLET (FP) PO PRN (15:56)
[2020-05-11] MEDS: ATORVASTATIN CA 40 MG TABLET (FP) PO SCH (22:00)
[2020-05-11] MEDS: ENOXAPARIN NA (PORCINE) 60 MG/0.6 ML DISP.SYRIN SQ SCH (23:18)
[2020-05-12] MEDS: METOPROLOL TARTRATE 5 MG/5 ML VIAL IVPUSH PRN ×2 (03:06→21:11)
[2020-05-12] MEDS: ACETAMINOPHEN 325 MG TABLET (FP) PO SCH ×3 (05:23→22:19)
[2020-05-12] MEDS: PANTOPRAZOLE 40 MG TABLET PO SCH (06:34)
[2020-05-12 07:30] LABS: BASO % 0.7 % (0-2.0); EOS % 0.3 % (0-4.5); HEMATOCRIT 30.4 % (32.4-45.2); HEMOGLOBIN 9.7 GM/dL (10.7-15.3); LYMPH % 11.9 % (8-40); MCH 22.4 pg (25.7-33.7); MCHC 31.8 g/dl (32.0-36.0); MEAN CELL VOLUME 70.4 fl (80-96); MONO % 4.9 % (3.8-10.2); NEUT % 82.2 % (42.8-82.8); PLATELET COUNT 266 K/MM3 (134-434); RBC 4.32 M/mm3 (3.60-5.2); RDW 17.9 % (11.6-15.6); WHITE BLOOD COUNT 8.5 K/mm3 (4.0-10.0)
[2020-05-12 07:57] LABS: POTASSIUM 3.8 mmol/L (3.5-5.1)
[2020-05-12 08:12] LABS: ALBUMIN 2.3 g/dl (3.4-5.0); BILIRUBIN,TOTAL 1.2 mg/dL (0.2-1); BLOOD UREA NITROGEN 9.6 mg/dL (7-18); CALCIUM 9.1 mg/dL (8.5-10.1); CREATININE 0.7 mg/dL (0.55-1.3); TOT PROT 6.4 g/dl (6.4-8.2)
--- NOTE | 2020-05-12 08:24 | PN ---
Progress Note, Physician Chief Complaint: Patient seen and examined at the bedside, no acute events from last night except for rapid heart rate, afebrile. History of Present Illness: This 89 yr old w/f with PMH of atrial fibrillation, dementia, HTN, HLD, PPM, DVT, CHF, memory loss admitted via ER with an acute dyspnea, low back pain, fever, neutrophilic leukocytosis, prerenal azotemia, dehydration, thrombocytopenia, elevated troponin, high d-dimer, UTI, hyponatremia, and elevated uric acid. - Current Medication List Current Medications: Active Medications Acetaminophen (Tylenol -) 325 mg PO TID [facility] Last Admin: 05/12/20 05:23 Dose: Not Given Documented by: Acetaminophen (Tylenol -) 650 mg PO Q6H PRN PRN Reason: PAIN LEVEL 4 - 6 Atorvastatin Calcium (Lipitor -) 40 mg PO HS [facility] Last Admin: 05/11/20 22:00 Dose: 40 mg Documented by: Cholecalciferol (Vitamin D3 -) 5,000 unit PO DAILY [facility] Last Admin: 05/11/20 09:09 Dose: 5,000 unit Documented by: Enoxaparin Sodium (Lovenox -) 60 mg SQ Q24H [facility] Last Admin: 05/11/20 23:18 Dose: 60 mg Documented by: Furosemide (Lasix -) 40 mg PO DAILY [facility] Last Admin: 05/11/20 09:08 Dose: 40 mg Documented by: Ertapenem 1 gm/ Sodium (Chloride) 50 mls @ 100 mls/hr IVPB DAILY [facility] Last Admin: 05/11/20 11:02 Dose: 100 mls/hr Documented by: Losartan Potassium (Cozaar -) 25 mg PO DAILY [facility] Last Admin: 05/11/20 09:08 Dose: 25 mg Documented by: Metoprolol Tartrate (Lopressor Injection -) 5 mg IVPUSH Q4H PRN PRN Reason: TACHYCARDIA Last Admin: 05/12/20 03:06 Dose: 5 mg Documented by: Metoprolol Tartrate (Lopressor -) 75 mg PO BID [facility] Last Admin: 05/11/20 22:00 Dose: 75 mg Documented by: Pantoprazole Sodium (Protonix -) 40 mg PO ACBK [facility] Last Admin: 05/12/20 06:34 Dose: 40 mg Documented by: Polyethylene Glycol (Miralax (For Daily Use) -) 17 gm PO DAILY [facility] Last Admin: 05/11/20 09:11 Dose: 17 gm Documented by: - Objective Vital Signs: Vital Signs Temperature 98.9 F 05/12/20 01:38 Pulse Rate 131 H 05/12/20 03:06 Respiratory Rate 18 05/12/20 01:38 Blood Pressure 145/70 05/12/20 03:06 O2 Sat by Pulse Oximetry (%) 98 05/12/20 01:38 Constitutional: Yes: Well Nourished, No Distress, Calm Eyes: Yes: Conjunctiva Clear, EOM Intact HENT: Yes: Atraumatic, Normocephalic Neck: Yes: Supple, Trachea Midline Cardiovascular: Yes: Pulse Irregular (atrial fibrillation) Respiratory: Yes: Regular, CTA Bilaterally Gastrointestinal: Yes: Normal Bowel Sounds, Soft ...Rectal Exam: Yes: Deferred Genitourinary: Yes: WNL Breast(s): Yes: WNL Musculoskeletal: Yes: Muscle Weakness Extremities: Yes: WNL Edema: Yes Edema: LUE: Trace (left hand) Peripheral Pulses WNL: Yes Integumentary: Yes: WNL Neurological: Yes: Alert, Unsteady Gait, Weakness ...Motor Strength: LUE (generalized muscle weakness of all extremities) Psychiatric: Yes: Alert Labs: CBC, BMP 05/12/20 06:40 05/12/20 06:40 - ....Imaging Other: Report Reviewed (lab data reviewed) Problem List - Problems (1) AMS (altered mental status) Code(s): R41.82 - ALTERED MENTAL STATUS, UNSPECIFIED Qualifiers: Altered mental status type: unspecified Qualified Code(s): R41.82 - Altered mental status, unspecified (2) Atrial fibrillation with RVR Code(s): I48.91 - UNSPECIFIED ATRIAL FIBRILLATION (3) Elevated INR Code(s): R79.1 - ABNORMAL COAGULATION PROFILE (4) Elevated troponin Code(s): R79.89 - OTHER SPECIFIED ABNORMAL FINDINGS OF BLOOD CHEMISTRY (5) Eosinophilia Code(s): D72.1 - EOSINOPHILIA (6) Fever Code(s): R50.9 - FEVER, UNSPECIFIED (7) Intracranial bleed Code(s): I62.9 - NONTRAUMATIC INTRACRANIAL HEMORRHAGE, UNSPECIFIED (8) Pneumonia Code(s): J18.9 - PNEUMONIA, UNSPECIFIED ORGANISM Qualifiers: Pneumonia type: due to unspecified organism Laterality: left Lung location: lower lobe of lung Qualified Code(s): J18.9 - Pneumonia, unspecified organism (9) Sepsis Code(s): A41.9 - SEPSIS, UNSPECIFIED ORGANISM Qualifiers: Sepsis type: sepsis due to unspecified organism Sepsis acute organ dysfunction status: with acute organ dysfunction Severe sepsis acute organ dysfunction type: unspecified Severe sepsis shock status: without septic shock Qualified Code(s): A41.9 - Sepsis, unspecified organism; R65.20 - Severe sepsis without septic shock (10) Suspected 2019 novel coronavirus infection Code(s): Z20.828 - CONTACT W AND EXPOSURE TO [facility] VIRAL COMMUNICABLE DISEASES (11) Shortness of breath Code(s): R06.02 - SHORTNESS OF BREATH (12) Prerenal azotemia Code(s): R79.89 - OTHER SPECIFIED ABNORMAL FINDINGS OF BLOOD CHEMISTRY (13) Dehydration Code(s): E86.0 - DEHYDRATION (14) High serum lactic acid Code(s): R79.89 - OTHER SPECIFIED ABNORMAL FINDINGS OF BLOOD CHEMISTRY (15) Thrombocytopenia Code(s): D69.6 - THROMBOCYTOPENIA, UNSPECIFIED (16) Leukocytosis (leucocytosis) Code(s): D72.829 - ELEVATED WHITE BLOOD CELL COUNT, UNSPECIFIED Qualifiers: Leukocytosis type: unspecified Qualified Code(s): D72.829 - Elevated white blood cell count, unspecified (17) Hyponatremia Code(s): E87.1 - HYPO-OSMOLALITY AND HYPONATREMIA (18) Hypotension Code(s): I95.9 - HYPOTENSION, UNSPECIFIED Qualifiers: Hypotension type: hypotension due to hypovolemia Qualified Code(s): I95.89 - Other hypotension; E86.1 - Hypovolemia (19) Iron deficiency anemia Code(s): D50.9 - IRON DEFICIENCY ANEMIA, UNSPECIFIED (20) Hypokalemia Code(s): E87.6 - HYPOKALEMIA Assessment/Plan Assessment/plan: acute hypokalemia, atrial fibrillation with RVR, urosepsis due to UTI, high d-dimer, dyspnea, low back pain, fever, prerenal azotemia, dehydration, neutrophilic leukocytosis, thrombocytopenia, elevated troponin, hyponatremia, elevated lactic acid; IV Ertapenem for UTI; SQ Lovenox and oral pantoprazole for DVT/GI prophylaxis; atorvastatin for HLD; losartan for HTN; oral and IV metoprolol for heart rate control; IV potassium chloride for hypokalemia; physical therapy for deconditioning.
--- NOTE | 2020-05-12 08:57 | PN ---
Progress Note, Physician History of Present Illness: This 89 yr old female with PMH of atrial fibrillation, dementia non- verbal, HTN, HLD, PPM, DVT, CHF, previous fall with SAH admitted via ER with shortness of breath, low back pain, fever, neutrophilic leukocytosis, high d- dimer, UTI, urosepsis, elevated lactic acid, prerenal azotemia, dehydration, hyponatremia, elevated troponin, anemia, and thrombocytopenia. Afebrile w/ improved hemodynamics and afib rate-controlled with metoprolol, resting comfortably. Previous conclusion patient was not optimal a/c candidate. - Current Medication List Current Medications: Active Medications Acetaminophen (Tylenol -) 325 mg PO TID [facility] Last Admin: 05/12/20 05:23 Dose: Not Given Documented by: Acetaminophen (Tylenol -) 650 mg PO Q6H PRN PRN Reason: PAIN LEVEL 4 - 6 Atorvastatin Calcium (Lipitor -) 40 mg PO HS [facility] Last Admin: 05/11/20 22:00 Dose: 40 mg Documented by: Cholecalciferol (Vitamin D3 -) 5,000 unit PO DAILY [facility] Last Admin: 05/11/20 09:09 Dose: 5,000 unit Documented by: Enoxaparin Sodium (Lovenox -) 60 mg SQ Q24H [facility] Last Admin: 05/11/20 23:18 Dose: 60 mg Documented by: Furosemide (Lasix -) 40 mg PO DAILY [facility] Last Admin: 05/11/20 09:08 Dose: 40 mg Documented by: Ertapenem 1 gm/ Sodium (Chloride) 50 mls @ 100 mls/hr IVPB DAILY [facility] Last Admin: 05/11/20 11:02 Dose: 100 mls/hr Documented by: Losartan Potassium (Cozaar -) 25 mg PO DAILY [facility] Last Admin: 05/11/20 09:08 Dose: 25 mg Documented by: Metoprolol Tartrate (Lopressor Injection -) 5 mg IVPUSH Q4H PRN PRN Reason: TACHYCARDIA Last Admin: 05/12/20 03:06 Dose: 5 mg Documented by: Metoprolol Tartrate (Lopressor -) 75 mg PO BID [facility] Last Admin: 05/11/20 22:00 Dose: 75 mg Documented by: Pantoprazole Sodium (Protonix -) 40 mg PO ACBK [facility] Last Admin: 05/12/20 06:34 Dose: 40 mg Documented by: Polyethylene Glycol (Miralax (For Daily Use) -) 17 gm PO DAILY [facility] Last Admin: 05/11/20 09:11 Dose: 17 gm Documented by: - Objective Vital Signs: Vital Signs Temperature 98.9 F 05/12/20 01:38 Pulse Rate 131 H 05/12/20 03:06 Respiratory Rate 18 05/12/20 01:38 Blood Pressure 145/70 05/12/20 03:06 O2 Sat by Pulse Oximetry (%) 98 05/12/20 01:38 Constitutional: Yes: No Distress, Calm, Thin Neck: Yes: Supple Cardiovascular: Yes: Pulse Irregular Respiratory: Yes: Regular, Diminished, On Nasal O2 Gastrointestinal: Yes: Normal Bowel Sounds, Soft Edema: No Labs: CBC, BMP 05/12/20 06:40 05/12/20 06:40 - ....Imaging Cat Scan: Report Reviewed (HCT: NO acute changes) Problem List - Problems (1) Hyponatremia Code(s): E87.1 - HYPO-OSMOLALITY AND HYPONATREMIA (2) Hypotension Code(s): I95.9 - HYPOTENSION, UNSPECIFIED Qualifiers: Hypotension type: hypotension due to hypovolemia Qualified Code(s): I95.89 - Other hypotension; E86.1 - Hypovolemia (3) Leukocytosis (leucocytosis) Code(s): D72.829 - ELEVATED WHITE BLOOD CELL COUNT, UNSPECIFIED Qualifiers: Leukocytosis type: unspecified Qualified Code(s): D72.829 - Elevated white blood cell count, unspecified (4) Prerenal azotemia Code(s): R79.89 - OTHER SPECIFIED ABNORMAL FINDINGS OF BLOOD CHEMISTRY (5) Shortness of breath Code(s): R06.02 - SHORTNESS OF BREATH (6) AMS (altered mental status) Code(s): R41.82 - ALTERED MENTAL STATUS, UNSPECIFIED Qualifiers: Altered mental status type: unspecified Qualified Code(s): R41.82 - Altered mental status, unspecified (7) Atrial fibrillation with RVR Code(s): I48.91 - UNSPECIFIED ATRIAL FIBRILLATION (8) Sepsis Code(s): A41.9 - SEPSIS, UNSPECIFIED ORGANISM Qualifiers: Sepsis type: sepsis due to unspecified organism Sepsis acute organ dysfunction status: with acute organ dysfunction Severe sepsis acute organ dysfunction type: unspecified Severe sepsis shock status: without septic shock Qualified Code(s): A41.9 - Sepsis, unspecified organism; R65.20 - Severe sepsis without septic shock Assessment/Plan 05/07/2020 Renal US: No sig hydronephrosis a/p: 89 f hx dementia, afib with RVR, ppm, htn, hld, here with dyspnea, leukocytosis, fever, pyuria and ISAIAS since improving 1. Persistent afib with RVR now improved rate-control 2. Dementia 3. Previous fall with SAH not ideal a/c candidate 4. s/p PPM ([facility] initially placed 1997; latest battery replacement ?2015; last checked 6 months ago) 5. HTN currently hypotensive 6. Hyperlipidemia 7. UTI 9. ISAIAS resolving 10. Demand ischemia P:1. Rate-control with increased metoprolol 75 po bid and IV as needed, trops downtrending, losartan 25 qd as renal fxn stabilized as hemodynamics tolerate 2. No longer on coumadin as patient is not ideal a/c candidate given previous falls, SAH, dementia, comfort measures 3. Empiric abx per C&S, monitor renal recovery 4. Continue Lipitor 40 qd, Lasix 40 qd with monitor diuretic response, renal fxn and electrolytes, replete K 5. PPM interrogation 6. F/u with sludge control operator: Dr. Sarath Hill
[2020-05-12] MEDS: ERTAPENEM SODIUM 1 GM in SODIUM CHLORIDE 50 ML IVPB SCH (09:44)
[2020-05-12] MEDS: METOPROLOL TARTRATE 50 MG TABLET (FP) PO SCH ×2 (09:45→22:52)
[2020-05-12] MEDS: FUROSEMIDE 40 MG TABLET (FP) PO SCH (09:46)
[2020-05-12] MEDS: LOSARTAN POTASSIUM 50 MG TABLET (FP) PO SCH (09:46)
[2020-05-12] MEDS: CHOLECALCIFEROL (VIT D3) 1,000 UNIT (25 MCG) TABLET PO SCH (09:48)
[2020-05-12] MEDS: POLYETHYLENE GLYCOL 3350 119 GM BTL PO SCH (09:49)
[2020-05-12] MEDS: KCL 10 MEQ IVPB 10 MEQ/100 ML INFUS.BAG IVPB SCH ×3 (10:41→16:31)
--- NOTE | 2020-05-12 11:05 | EKG ---
Test Reason : Blood Pressure : / mmHG Vent. Rate : 110 BPM Atrial Rate : 500 BPM P-R Int : 000 ms QRS Dur : 076 ms QT Int : 336 ms P-R-T Axes : 000 000 -54 degrees QTc Int : 454 ms ATRIAL FIBRILLATION WITH RAPID VENTRICULAR RESPONSE WITH PREMATURE VENTRICULAR OR ABERRANTLY CONDUCTED COMPLEXES CANNOT RULE OUT INFERIOR INFARCT (CITED ON OR BEFORE 23-DEC-2019) ANTEROSEPTAL INFARCT (CITED ON OR BEFORE 23-DEC-2019) ABNORMAL ECG WHEN COMPARED WITH ECG OF 23-DEC-2019 21:03, NO SIGNIFICANT CHANGE WAS FOUND Confirmed by FIDE SHEARER MD ([id number]) on 05/12/2020 11:04:36 AM Referred By: Kenneth STANTON Confirmed By:FIDE SHEARER MD
--- NOTE | 2020-05-12 12:17 | PN ---
Progress Note (short form) - Note Progress Note: feels improved still c/o left hand pain - has been present since she had her stroke several months ago xray with extensive OA Vital Signs Period Temp Pulse Resp BP Sys/Luu Pulse Ox Last 24 Hr 97.8 F-98.9 F 83-131 18-19 110-148/67-96 98-99 cor-rrr lungs clear abd soft,nt ext no edema CBC, BMP 05/12/20 06:40 05/12/20 06:40 Microbiology 05/06/20 21:15 Blood - Peripheral Venous Blood Culture - Final NO GROWTH AFTER 5 DAYS INCUBATION 05/06/20 21:00 Blood - Peripheral Venous Blood Culture - Final NO GROWTH AFTER 5 DAYS INCUBATION 05/06/20 01:12 Urine - Urine Clean Catch Urine Culture - Final Escherichia Coli Esbl Film Maker Klebsiella Pneumoniae a/p UTI-ecoli esbl and klebsiella- day #5 ertapenem- to complete 7 days mandy resolved
[2020-05-12] MEDS ORDERED: PT OWN MED DRAWER 7, Y5N ONE (18:52)
[2020-05-12] MEDS: ATORVASTATIN CA 40 MG TABLET (FP) PO SCH (22:20)
[2020-05-12] MEDS: ENOXAPARIN NA (PORCINE) 60 MG/0.6 ML DISP.SYRIN SQ SCH (23:24)
[2020-05-13] MEDS: ACETAMINOPHEN 325 MG TABLET (FP) PO SCH ×3 (05:54→21:36)
[2020-05-13] MEDS: PANTOPRAZOLE 40 MG TABLET PO SCH (06:02)
[2020-05-13 06:48] LABS: BASO % 0.6 % (0-2.0); EOS % 0.8 % (0-4.5); HEMATOCRIT 29.8 % (32.4-45.2); HEMOGLOBIN 9.6 GM/dL (10.7-15.3); LYMPH % 17.1 % (8-40); MCH 22.4 pg (25.7-33.7); MCHC 32.4 g/dl (32.0-36.0); MEAN CELL VOLUME 69.2 fl (80-96); MEAN PLT VOLUME 7.8 fl (7.5-11.1); MONO % 6.9 % (3.8-10.2); NEUT % 74.6 % (42.8-82.8); PLATELET COUNT 299 K/MM3 (134-434); RDW 18.3 % (11.6-15.6); WHITE BLOOD COUNT 7.5 K/mm3 (4.0-10.0)
[2020-05-13 07:18] LABS: ALBUMIN 2.6 g/dl (3.4-5.0); BILIRUBIN,TOTAL 1.1 mg/dL (0.2-1); BLOOD UREA NITROGEN 9.9 mg/dL (7-18); CALCIUM 9.5 mg/dL (8.5-10.1); CREATININE 0.7 mg/dL (0.55-1.3); POTASSIUM 4.1 mmol/L (3.5-5.1); TOT PROT 6.6 g/dl (6.4-8.2)
--- NOTE | 2020-05-13 08:34 | PN ---
Progress Note, Physician Chief Complaint: Patient seen and examined at the bedside, no acute events from last night, confused and disoriented. History of Present Illness: This 89 yr old w/f with PMH of atrial fibrillation, dementia, HTN, HLD, PPM DVT CHF, memory loss admitted via ER with an acute dyspnea, fever, low back pain, urosepsis due to UTI, neutrophilic leukocytosis, prerenal azotemia, dehydration, thrombocytopenia, elevated troponin d-dimer and lactic acid, hyponatremia. - Current Medication List Current Medications: Active Medications Acetaminophen (Tylenol -) 325 mg PO TID [facility] Last Admin: 05/13/20 05:54 Dose: 325 mg Documented by: Acetaminophen (Tylenol -) 650 mg PO Q6H PRN PRN Reason: PAIN LEVEL 4 - 6 Atorvastatin Calcium (Lipitor -) 40 mg PO HS [facility] Last Admin: 05/12/20 22:20 Dose: 40 mg Documented by: Cholecalciferol (Vitamin D3 -) 5,000 unit PO DAILY [facility] Last Admin: 05/12/20 09:48 Dose: 5,000 unit Documented by: Enoxaparin Sodium (Lovenox -) 60 mg SQ Q24H [facility] Last Admin: 05/12/20 23:24 Dose: 60 mg Documented by: Furosemide (Lasix -) 40 mg PO DAILY [facility] Last Admin: 05/12/20 09:46 Dose: 40 mg Documented by: Ertapenem 1 gm/ Sodium (Chloride) 50 mls @ 100 mls/hr IVPB DAILY [facility] Last Admin: 05/12/20 09:44 Dose: 100 mls/hr Documented by: Losartan Potassium (Cozaar -) 25 mg PO DAILY [facility] Last Admin: 05/12/20 09:46 Dose: 25 mg Documented by: Metoprolol Tartrate (Lopressor Injection -) 5 mg IVPUSH Q4H PRN PRN Reason: TACHYCARDIA Last Admin: 05/12/20 21:11 Dose: 5 mg Documented by: Metoprolol Tartrate (Lopressor -) 75 mg PO BID [facility] Last Admin: 05/12/20 22:52 Dose: 75 mg Documented by: Pantoprazole Sodium (Protonix -) 40 mg PO ACBK [facility] Last Admin: 05/13/20 06:02 Dose: 40 mg Documented by: Polyethylene Glycol (Miralax (For Daily Use) -) 17 gm PO DAILY [facility] Last Admin: 05/12/20 09:49 Dose: 17 gm Documented by: - Objective Vital Signs: Vital Signs Temperature 98.2 F 05/13/20 06:00 Pulse Rate 96 H 05/13/20 06:00 Respiratory Rate 18 05/13/20 06:00 Blood Pressure 142/77 05/13/20 06:00 O2 Sat by Pulse Oximetry (%) 100 05/13/20 06:00 Constitutional: Yes: Well Nourished, No Distress, Calm Eyes: Yes: Conjunctiva Clear, EOM Intact HENT: Yes: Atraumatic, Normocephalic Neck: Yes: Supple, Trachea Midline Cardiovascular: Yes: Pulse Irregular (atrial fibrillation) Respiratory: Yes: Regular, CTA Bilaterally Gastrointestinal: Yes: Normal Bowel Sounds, Soft ...Rectal Exam: Yes: Deferred Genitourinary: Yes: WNL Breast(s): Yes: WNL Musculoskeletal: Yes: Muscle Weakness Extremities: Yes: WNL Edema: No Peripheral Pulses WNL: Yes Integumentary: Yes: WNL Neurological: Yes: Alert, Confusion, Unsteady Gait, Weakness ...Motor Strength: LUE (generalized muscle weakness of all extremities) Psychiatric: Yes: Alert Labs: CBC, BMP 05/13/20 05:55 05/13/20 05:55 - ....Imaging Other: Report Reviewed (lab data reviewed) Problem List - Problems (1) AMS (altered mental status) Code(s): R41.82 - ALTERED MENTAL STATUS, UNSPECIFIED Qualifiers: Altered mental status type: unspecified Qualified Code(s): R41.82 - Altered mental status, unspecified (2) Atrial fibrillation with RVR Code(s): I48.91 - UNSPECIFIED ATRIAL FIBRILLATION (3) Elevated INR Code(s): R79.1 - ABNORMAL COAGULATION PROFILE (4) Elevated troponin Code(s): R79.89 - OTHER SPECIFIED ABNORMAL FINDINGS OF BLOOD CHEMISTRY (5) Eosinophilia Code(s): D72.1 - EOSINOPHILIA (6) Fever Code(s): R50.9 - FEVER, UNSPECIFIED (7) Intracranial bleed Code(s): I62.9 - NONTRAUMATIC INTRACRANIAL HEMORRHAGE, UNSPECIFIED (8) Pneumonia Code(s): J18.9 - PNEUMONIA, UNSPECIFIED ORGANISM Qualifiers: Pneumonia type: due to unspecified organism Laterality: left Lung location: lower lobe of lung Qualified Code(s): J18.9 - Pneumonia, unspecified organism (9) Sepsis Code(s): A41.9 - SEPSIS, UNSPECIFIED ORGANISM Qualifiers: Sepsis type: sepsis due to unspecified organism Sepsis acute organ d ysfunction status: with acute organ dysfunction Severe sepsis acute organ dysfunction type: unspecified Severe sepsis shock status: without septic shock Qualified Code(s): A41.9 - Sepsis, unspecified organism; R65.20 - Severe sepsis without septic shock (10) Suspected 2019 novel coronavirus infection Code(s): Z20.828 - CONTACT W AND EXPOSURE TO [facility] VIRAL COMMUNICABLE DISEASES (11) Shortness of breath Code(s): R06.02 - SHORTNESS OF BREATH (12) Prerenal azotemia Code(s): R79.89 - OTHER SPECIFIED ABNORMAL FINDINGS OF BLOOD CHEMISTRY (13) Dehydration Code(s): E86.0 - DEHYDRATION (14) High serum lactic acid Code(s): R79.89 - OTHER SPECIFIED ABNORMAL FINDINGS OF BLOOD CHEMISTRY (15) Thrombocytopenia Code(s): D69.6 - THROMBOCYTOPENIA, UNSPECIFIED (16) Leukocytosis (leucocytosis) Code(s): D72.829 - ELEVATED WHITE BLOOD CELL COUNT, UNSPECIFIED Qualifiers: Leukocytosis type: unspecified Qualified Code(s): D72.829 - Elevated white blood cell count, unspecified (17) Hyponatremia Code(s): E87.1 - HYPO-OSMOLALITY AND HYPONATREMIA (18) Hypotension Code(s): I95.9 - HYPOTENSION, UNSPECIFIED Qualifiers: Hypotension type: hypotension due to hypovolemia Qualified Code(s): I95.89 - Other hypotension; E86.1 - Hypovolemia (19) Iron deficiency anemia Code(s): D50.9 - IRON DEFICIENCY ANEMIA, UNSPECIFIED (20) Hypokalemia Code(s): E87.6 - HYPOKALEMIA Assessment/Plan Assessment/plan: acute dyspna, low back pain, fever, 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
--- NOTE | 2020-05-13 09:49 | PN ---
Progress Note, Physician Chief Complaint: Events noted Not in distress History of Present Illness: Patient was seen and examined. Awake. Chart was reviewed Denies chest pain, SOB or palpitations - Current Medication List Current Medications: Active Medications Acetaminophen (Tylenol -) 325 mg PO TID REPLACED BY [facility] Last Admin: 05/13/20 05:54 Dose: 325 mg Documented by: Acetaminophen (Tylenol -) 650 mg PO Q6H PRN PRN Reason: PAIN LEVEL 4 - 6 Atorvastatin Calcium (Lipitor -) 40 mg PO HS REPLACED BY [facility] Last Admin: 05/12/20 22:20 Dose: 40 mg Documented by: Cholecalciferol (Vitamin D3 -) 5,000 unit PO DAILY [facility]PL[facility] BY [facility] Last Admin: 05/12/20 09:48 Dose: 5,000 unit Documented by: Enoxaparin Sodium (Lovenox -) 60 mg SQ Q24H REPLACED BY [facility] Last Admin: 05/12/20 23:24 Dose: 60 mg Documented by: Furosemide (Lasix -) 40 mg PO DAILY [facility]PL[facility] BY [facility] Last Admin: 05/12/20 09:46 Dose: 40 mg Documented by: Ertapenem 1 gm/ Sodium (Chloride) 50 mls @ 100 mls/hr IVPB DAILY [facility]PL[facility] BY [facility] Last Admin: 05/12/20 09:44 Dose: 100 mls/hr Documented by: Losartan Potassium (Cozaar -) 25 mg PO DAILY [facility]PL[facility] BY [facility] Last Admin: 05/12/20 09:46 Dose: 25 mg Documented by: Metoprolol Tartrate (Lopressor Injection -) 5 mg IVPUSH Q4H PRN PRN Reason: TACHYCARDIA Last Admin: 05/12/20 21:11 Dose: 5 mg Documented by: Metoprolol Tartrate (Lopressor -) 75 mg PO BID REPL[facility]ED BY [facility] Last Admin: 05/12/20 22:52 Dose: 75 mg Documented by: Pantoprazole Sodium (Protonix -) 40 mg PO ACBK REPLACED BY [facility] Last Admin: 05/13/20 06:02 Dose: 40 mg Documented by: Polyethylene Glycol (Miralax (For Daily Use) -) 17 gm PO DAILY [facility]PL[facility]ED BY [facility] Last Admin: 05/12/20 09:49 Dose: 17 gm Documented by: - Objective Vital Signs: Vital Signs Temperature 98.5 F 05/13/20 09:02 Pulse Rate 102 H 05/13/20 09:02 Respiratory Rate 18 05/13/20 09:02 Blood Pressure 126/74 05/13/20 09:02 O2 Sat by Pulse Oximetry (%) 95 05/13/20 09:02 Neck: Yes: Supple Cardiovascular: Yes: Pulse Irregular, S1, S2 Respiratory: Yes: Diminished Gastrointestinal: Yes: Normal Bowel Sounds, Soft. No: Tenderness Edema: No Labs: CBC, BMP 05/13/20 05:55 05/13/20 05:55 Problem List - Problems (1) ISAIAS (acute kidney injury) Code(s): N17.9 - ACUTE KIDNEY FAILURE, UNSPECIFIED (2) Elevated troponin Code(s): R79.89 - OTHER SPECIFIED ABNORMAL FINDINGS OF BLOOD CHEMISTRY Assessment/Plan 1. Persistent AF with RVR variable HR 2. Dementia 3. Previous fall with SAH not ideal anticoagulation candidate 4. 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 HTN 6. Hyperlipidemia 7. UTI 8. ISAIAS resolving 9. Demand ischemia PLAN: 1. May increase Metoprolol Tartrate to 100 mg BID if BP permits and IV Lopressor as needed for added rate control. Continue Losartan 25 mg QD as tolerated 2. Not on anticoagulation due to bleeding risk 3. Empiric antibiotics 4. Continue Lipitor 40 mg QD. 5. Continue Lasix 40 mg QD with monitoring renal function and electrolytes 6. PPM interrogation 7. F/u with occupational therapy department chair: Dr. Sarath Hill upon discharge Robbie Washington MD
[2020-05-13] MEDS ORDERED: PT OWN MED DRAWER 7, Y5N ONE (09:52)
[2020-05-13] MEDS: METOPROLOL TARTRATE 50 MG TABLET (FP) PO SCH ×2 (09:56→21:37)
[2020-05-13] MEDS: LOSARTAN POTASSIUM 50 MG TABLET (FP) PO SCH (09:58)
[2020-05-13] MEDS: FUROSEMIDE 40 MG TABLET (FP) PO SCH (09:58)
[2020-05-13] MEDS: ERTAPENEM SODIUM 1 GM in SODIUM CHLORIDE 50 ML IVPB SCH (09:59)
[2020-05-13] MEDS: CHOLECALCIFEROL (VIT D3) 1,000 UNIT (25 MCG) TABLET PO SCH (10:00)
[2020-05-13] MEDS: POLYETHYLENE GLYCOL 3350 119 GM BTL PO SCH (10:25)
[2020-05-13] MEDS: ATORVASTATIN CA 40 MG TABLET (FP) PO SCH (21:36)
[2020-05-13] MEDS: ENOXAPARIN NA (PORCINE) 60 MG/0.6 ML DISP.SYRIN SQ SCH (23:03)
[2020-05-14] MEDS: ACETAMINOPHEN 325 MG TABLET (FP) PO SCH ×3 (06:59→21:02)
[2020-05-14] MEDS: PANTOPRAZOLE 40 MG TABLET PO SCH (06:59)
--- NOTE | 2020-05-14 07:59 | PN ---
Progress Note, Physician Chief Complaint: Patient seen and examined at the bedside, no acute events from last night, afebrile, no labored breathing, feeling stronger. History of Present Illness: This 89 yr old w/f with PMH of atrial fibrillation, dementia, HTN, HLD, PPM, DVT, CHF, memory loss admitted via ER with an acute dyspnea, low back pain, fever, neutrophilic leukocytosis, prerenal azotemia, dehydration, thrombocytopenia, elevated d-dimer troponin and lactic acid, urosepsisi due to UTI, and hyponatremia. - Current Medication List Current Medications: Active Medications Acetaminophen (Tylenol -) 325 mg PO TID [facility] Last Admin: 05/14/20 06:59 Dose: 325 mg Documented by: Acetaminophen (Tylenol -) 650 mg PO Q6H PRN PRN Reason: PAIN LEVEL 4 - 6 Atorvastatin Calcium (Lipitor -) 40 mg PO HS [facility] Last Admin: 05/13/20 21:36 Dose: 40 mg Documented by: Cholecalciferol (Vitamin D3 -) 5,000 unit PO DAILY [facility] Last Admin: 05/13/20 10:00 Dose: 5,000 unit Documented by: Enoxaparin Sodium (Lovenox -) 60 mg SQ Q24H [facility] Last Admin: 05/13/20 23:03 Dose: 60 mg Documented by: Furosemide (Lasix -) 40 mg PO DAILY [facility] Last Admin: 05/13/20 09:58 Dose: 40 mg Documented by: Ertapenem 1 gm/ Sodium (Chloride) 50 mls @ 100 mls/hr IVPB DAILY [facility] Last Admin: 05/13/20 09:59 Dose: 100 mls/hr Documented by: Losartan Potassium (Cozaar -) 25 mg PO DAILY [facility] Last Admin: 05/13/20 09:58 Dose: 25 mg Documented by: Metoprolol Tartrate (Lopressor Injection -) 5 mg IVPUSH Q4H PRN PRN Reason: TACHYCARDIA Last Admin: 05/12/20 21:11 Dose: 5 mg Documented by: Metoprolol Tartrate (Lopressor -) 75 mg PO BID [facility] Last Admin: 05/13/20 21:37 Dose: 75 mg Documented by: Pantoprazole Sodium (Protonix -) 40 mg PO ACBK [facility] Last Admin: 05/14/20 06:59 Dose: 40 mg Documented by: Polyethylene Glycol (Miralax (For Daily Use) -) 17 gm PO DAILY [facility] Last Admin: 05/13/20 10:25 Dose: 17 gm Documented by: - Objective Vital Signs: Vital Signs Temperature 98.2 F 05/14/20 06:00 Pulse Rate 107 H 05/14/20 06:00 Respiratory Rate 18 05/14/20 06:00 Blood Pressure 128/69 05/14/20 06:00 O2 Sat by Pulse Oximetry (%) 93 L 05/14/20 06:00 Constitutional: Yes: Well Nourished, No Distress, Calm Eyes: Yes: Conjunctiva Clear, EOM Intact HENT: Yes: Atraumatic, Normocephalic Neck: Yes: Supple, Trachea Midline Cardiovascular: Yes: Pulse Irregular (atrial fibrillation) Respiratory: Yes: Regular, CTA Bilaterally Gastrointestinal: Yes: Normal Bowel Sounds, Soft ...Rectal Exam: Yes: Deferred Genitourinary: Yes: WNL Breast(s): Yes: WNL Musculoskeletal: Yes: Muscle Weakness Extremities: Yes: Other (arthritis of both hands L>R) Edema: No Peripheral Pulses WNL: Yes Integumentary: Yes: WNL Neurological: Yes: Alert, Confusion, Unsteady Gait, Weakness ...Motor Strength: LUE (generalized muscle weakness of all extremities) Psychiatric: Yes: Alert - ....Imaging Other: Report Reviewed (lab data reviewed) Problem List - Problems (1) AMS (altered mental status) Code(s): R41.82 - ALTERED MENTAL STATUS, UNSPECIFIED Qualifiers: Altered mental status type: unspecified Qualified Code(s): R41.82 - Altered mental status, unspecified (2) Atrial fibrillation with RVR Code(s): I48.91 - UNSPECIFIED ATRIAL FIBRILLATION (3) Elevated INR Code(s): R79.1 - ABNORMAL COAGULATION PROFILE (4) Elevated troponin Code(s): R79.89 - OTHER SPECIFIED ABNORMAL FINDINGS OF BLOOD CHEMISTRY (5) Eosinophilia Code(s): D72.1 - EOSINOPHILIA (6) Fever Code(s): R50.9 - FEVER, UNSPECIFIED (7) Intracranial bleed Code(s): I62.9 - NONTRAUMATIC INTRACRANIAL HEMORRHAGE, UNSPECIFIED (8) Pneumonia Code(s): J18.9 - PNEUMONIA, UNSPECIFIED ORGANISM Qualifiers: Pneumonia type: due to unspecified organism Laterality: left Lung location: lower lobe of lung Qualified Code(s): J18.9 - Pneumonia, unspecified organism (9) Sepsis Code(s): A41.9 - SEPSIS, UNSPECIFIED ORGANISM Qualifiers: Sepsis type: sepsis due to unspecified organism Sepsis acute organ dysfunction status: with acute organ dysfunction Severe sepsis acute organ dysfunction type: unspecified Severe sepsis shock status: without septic shock Qualified Code(s): A41.9 - Sepsis, unspecified organism; R65.20 - Severe sepsis without septic shock (10) Suspected 2019 novel coronavirus infection Code(s): Z20.828 - CONTACT W AND EXPOSURE TO [facility] VIRAL COMMUNICABLE DISEASES (11) Shortness of breath Code(s): R06.02 - SHORTNESS OF BREATH (12) Prerenal azotemia Code(s): R79.89 - OTHER SPECIFIED ABNORMAL FINDINGS OF BLOOD CHEMISTRY (13) Dehydration Code(s): E86.0 - DEHYDRATION (14) High serum lactic acid Code(s): R79.89 - OTHER SPECIFIED ABNORMAL FINDINGS OF BLOOD CHEMISTRY (15) Thrombocytopenia Code(s): D69.6 - THROMBOCYTOPENIA, UNSPECIFIED (16) Leukocytosis (leucocytosis) Code(s): D72.829 - ELEVATED WHITE BLOOD CELL COUNT, UNSPECIFIED Qualifiers: Leukocytosis type: unspecified Qualified Code(s): D72.829 - Elevated white blood cell count, unspecified (17) Hyponatremia Code(s): E87.1 - HYPO-OSMOLALITY AND HYPONATREMIA (18) Hypotension Code(s): I95.9 - HYPOTENSION, UNSPECIFIED Qualifiers: Hypotension type: hypotension due to hypovolemia Qualified Code(s): I95.89 - Other hypotension; E86.1 - Hypovolemia (19) Iron deficiency anemia Code(s): D50.9 - IRON DEFICIENCY ANEMIA, UNSPECIFIED (20) Hypokalemia Code(s): E87.6 - HYPOKALEMIA Assessment/Plan Assessment/plan: acute dyspnea, low back pain, fever, neutrophilic leukocytosis, prerenal azotemia, dehydration, thrombocytopenia, elevated troponin d-dimer and lactic acid, elevated d-dimer and alk phos trending down, urosepsis due to UTI, hyponatremia; IV Ertapenem as per ID for urosepsis due to UTI 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
[2020-05-14 08:12] LABS: POTASSIUM 3.8 mmol/L (3.5-5.1)
[2020-05-14 08:21] LABS: ALBUMIN 2.5 g/dl (3.4-5.0); BILIRUBIN,TOTAL 1.1 mg/dL (0.2-1); CALCIUM 9.1 mg/dL (8.5-10.1); CREATININE 0.7 mg/dL (0.55-1.3); TOT PROT 6.4 g/dl (6.4-8.2)
[2020-05-14 08:29] LABS: BASO % 0.8 % (0-2.0); EOS % 0.9 % (0-4.5); HEMATOCRIT 31.3 % (32.4-45.2); HEMOGLOBIN 10.1 GM/dL (10.7-15.3); LYMPH % 22.3 % (8-40); MCH 22.7 pg (25.7-33.7); MCHC 32.2 g/dl (32.0-36.0); MEAN CELL VOLUME 70.7 fl (80-96); MEAN PLT VOLUME 8.2 fl (7.5-11.1); MONO % 6.8 % (3.8-10.2); NEUT % 69.2 % (42.8-82.8); PLATELET COUNT 322 K/MM3 (134-434); RBC 4.42 M/mm3 (3.60-5.2); RDW 18.1 % (11.6-15.6)
[2020-05-14] MEDS ORDERED: PT OWN MED DRAWER 7, Y5N ONE (09:24)
[2020-05-14] MEDS: FUROSEMIDE 40 MG TABLET (FP) PO SCH (09:29)
[2020-05-14] MEDS: METOPROLOL TARTRATE 50 MG TABLET (FP) PO SCH ×2 (09:29→21:00)
[2020-05-14] MEDS: LOSARTAN POTASSIUM 50 MG TABLET (FP) PO SCH (09:31)
[2020-05-14] MEDS: CHOLECALCIFEROL (VIT D3) 1,000 UNIT (25 MCG) TABLET PO SCH (09:31)
[2020-05-14] MEDS: ERTAPENEM SODIUM 1 GM in SODIUM CHLORIDE 50 ML IVPB SCH (09:36)
[2020-05-14] MEDS: POLYETHYLENE GLYCOL 3350 119 GM BTL PO SCH (09:37)
--- NOTE | 2020-05-14 10:14 | PN ---
Progress Note, Physician History of Present Illness: This 89 yr old female with PMH of atrial fibrillation, dementia non- verbal, HTN, HLD, PPM, DVT, CHF, previous fall with SAH admitted via ER with shortness of breath, low back pain, fever, neutrophilic leukocytosis, high d- dimer, UTI, urosepsis, elevated lactic acid, prerenal azotemia, dehydration, hyponatremia, elevated troponin, anemia, and thrombocytopenia. Afebrile w/ improved hemodynamics and afib rate-controlled with metoprolol, resting comfortably. Previous conclusion patient was not optimal a/c candidate. - Current Medication List Current Medications: Active Medications Acetaminophen (Tylenol -) 325 mg PO TID [facility] Last Admin: 05/14/20 06:59 Dose: 325 mg Documented by: Acetaminophen (Tylenol -) 650 mg PO Q6H PRN PRN Reason: PAIN LEVEL 4 - 6 Atorvastatin Calcium (Lipitor -) 40 mg PO HS [facility] Last Admin: 05/13/20 21:36 Dose: 40 mg Documented by: Cholecalciferol (Vitamin D3 -) 5,000 unit PO DAILY [facility] Last Admin: 05/14/20 09:31 Dose: 5,000 unit Documented by: Enoxaparin Sodium (Lovenox -) 60 mg SQ Q24H [facility] Last Admin: 05/13/20 23:03 Dose: 60 mg Documented by: Furosemide (Lasix -) 40 mg PO DAILY [facility] Last Admin: 05/14/20 09:29 Dose: 40 mg Documented by: Ertapenem 1 gm/ Sodium (Chloride) 50 mls @ 100 mls/hr IVPB DAILY [facility] Last Admin: 05/14/20 09:36 Dose: 100 mls/hr Documented by: Losartan Potassium (Cozaar -) 25 mg PO DAILY [facility] Last Admin: 05/14/20 09:31 Dose: 25 mg Documented by: Metoprolol Tartrate (Lopressor Injection -) 5 mg IVPUSH Q4H PRN PRN Reason: TACHYCARDIA Last Admin: 05/12/20 21:11 Dose: 5 mg Documented by: Metoprolol Tartrate (Lopressor -) 75 mg PO BID [facility] Last Admin: 05/14/20 09:29 Dose: 75 mg Documented by: Pantoprazole Sodium (Protonix -) 40 mg PO ACBK [facility] Last Admin: 05/14/20 06:59 Dose: 40 mg Documented by: Polyethylene Glycol (Miralax (For Daily Use) -) 17 gm PO DAILY [facility] Last Admin: 05/14/20 09:37 Dose: 17 gm Documented by: - Objective Vital Signs: Vital Signs Temperature 98.2 F 05/14/20 06:00 Pulse Rate 107 H 05/14/20 06:00 Respiratory Rate 18 05/14/20 06:00 Blood Pressure 128/69 05/14/20 06:00 O2 Sat by Pulse Oximetry (%) 93 L 05/14/20 06:00 Constitutional: Yes: No Distress, Calm, Thin Neck: Yes: Supple Cardiovascular: Yes: Pulse Irregular Respiratory: Yes: Regular, CTA Bilaterally Gastrointestinal: Yes: Normal Bowel Sounds, Soft Edema: No Labs: CBC, BMP 05/14/20 06:46 05/14/20 06:46 - ....Imaging EKG: Report Reviewed (Tele: Rate-controlled afib) Problem List - Problems (1) Hyponatremia Code(s): E87.1 - HYPO-OSMOLALITY AND HYPONATREMIA (2) Hypotension Code(s): I95.9 - HYPOTENSION, UNSPECIFIED Qualifiers: Hypotension type: hypotension due to hypovolemia Qualified Code(s): I95.89 - Other hypotension; E86.1 - Hypovolemia (3) Leukocytosis (leucocytosis) Code(s): D72.829 - ELEVATED WHITE BLOOD CELL COUNT, UNSPECIFIED Qualifiers: Leukocytosis type: unspecified Qualified Code(s): D72.829 - Elevated white blood cell count, unspecified (4) Prerenal azotemia Code(s): R79.89 - OTHER SPECIFIED ABNORMAL FINDINGS OF BLOOD CHEMISTRY (5) Shortness of breath Code(s): R06.02 - SHORTNESS OF BREATH (6) AMS (altered mental status) Code(s): R41.82 - ALTERED MENTAL STATUS, UNSPECIFIED Qualifiers: Altered mental status type: unspecified Qualified Code(s): R41.82 - Altered mental status, unspecified (7) Atrial fibrillation with RVR Code(s): I48.91 - UNSPECIFIED ATRIAL FIBRILLATION (8) Sepsis Code(s): A41.9 - SEPSIS, UNSPECIFIED ORGANISM Qualifiers: Sepsis type: sepsis due to unspecified organism Sepsis acute organ dysfunction status: with acute organ dysfunction Severe sepsis acute organ dysfunction type: unspecified Severe sepsis shock status: without septic shock Qualified Code(s): A41.9 - Sepsis, unspecified organism; R65.20 - Severe sepsis without septic shock Assessment/Plan 05/07/2020 Renal US: No sig hydronephrosis a/p: 89 f hx dementia, afib with RVR, ppm, htn, hld, here with dyspnea, leukocytosis, fever, pyuria and ISAIAS since improving 1. Persistent afib with RVR variable HR 2. Dementia 3. Previous fall with SAH not ideal a/c candidate 4. s/p PPM ([facility] initially placed 1997; latest battery replacement ?2015; last checked 6 months ago) 5. HTN currently hypotensive 6. Hyperlipidemia 7. UTI 9. ISAIAS resolving 10. Demand ischemia PLAN: 1. May increase Metoprolol Tartrate to 100 mg BID if BP permits and IV Lopressor as needed for added rate control. Continue Losartan 25 mg QD as tolerated 2. Not on anticoagulation due to bleeding risk 3. Empiric antibiotics 4. Continue Lipitor 40 mg QD. 5. Continue Lasix 40 mg QD with monitoring diuretic response, renal function and electrolytes 6. PPM interrogation 7. F/u with manufacturing controller: Dr. Sarath Hill upon discharge
[2020-05-14] MEDS: ATORVASTATIN CA 40 MG TABLET (FP) PO SCH (21:00)
[2020-05-14] MEDS: ENOXAPARIN NA (PORCINE) 60 MG/0.6 ML DISP.SYRIN SQ SCH (21:01)
[2020-05-15] MEDS: ACETAMINOPHEN 325 MG TABLET (FP) PO SCH ×3 (06:24→21:35)
[2020-05-15] MEDS: PANTOPRAZOLE 40 MG TABLET PO SCH (06:25)
[2020-05-15 07:48] LABS: BASO % 1.1 % (0-2.0); EOS % 1.4 % (0-4.5); HEMOGLOBIN 9.5 GM/dL (10.7-15.3); LYMPH % 27.6 % (8-40); MCH 22.3 pg (25.7-33.7); MCHC 31.6 g/dl (32.0-36.0); MEAN CELL VOLUME 70.7 fl (80-96); MEAN PLT VOLUME 7.6 fl (7.5-11.1); MONO % 8.2 % (3.8-10.2); NEUT % 61.7 % (42.8-82.8); PLATELET COUNT 343 K/MM3 (134-434); RBC 4.24 M/mm3 (3.60-5.2); WHITE BLOOD COUNT 4.8 K/mm3 (4.0-10.0)
[2020-05-15 08:21] LABS: ALBUMIN 2.3 g/dl (3.4-5.0); BILIRUBIN,TOTAL 0.8 mg/dL (0.2-1); BLOOD UREA NITROGEN 11.3 mg/dL (7-18); CALCIUM 8.9 mg/dL (8.5-10.1); CREATININE 0.7 mg/dL (0.55-1.3); POTASSIUM 3.6 mmol/L (3.5-5.1); TOT PROT 6.3 g/dl (6.4-8.2)
--- NOTE | 2020-05-15 09:15 | PN ---
Progress Note, Physician History of Present Illness: This 89 yr old female with PMH of atrial fibrillation, dementia non- verbal, HTN, HLD, PPM, DVT, CHF, previous fall with SAH admitted via ER with shortness of breath, low back pain, fever, neutrophilic leukocytosis, high d- dimer, UTI, urosepsis, elevated lactic acid, prerenal azotemia, dehydration, hyponatremia, elevated troponin, anemia, and thrombocytopenia. Afebrile w/ improved hemodynamics and afib rate-controlled with metoprolol, tolerating PT with walker assistance. Previous conclusion patient was not optimal a/c candidate. - Current Medication List Current Medications: Active Medications Acetaminophen (Tylenol -) 325 mg PO TID [facility] Last Admin: 05/15/20 06:24 Dose: 325 mg Documented by: Acetaminophen (Tylenol -) 650 mg PO Q6H PRN PRN Reason: PAIN LEVEL 4 - 6 Atorvastatin Calcium (Lipitor -) 40 mg PO HS [facility] Last Admin: 05/14/20 21:00 Dose: 40 mg Documented by: Cholecalciferol (Vitamin D3 -) 5,000 unit PO DAILY [facility] Last Admin: 05/14/20 09:31 Dose: 5,000 unit Documented by: Enoxaparin Sodium (Lovenox -) 60 mg SQ HS [facility] Last Admin: 05/14/20 21:01 Dose: 60 mg Documented by: Furosemide (Lasix -) 40 mg PO DAILY [facility] Last Admin: 05/14/20 09:29 Dose: 40 mg Documented by: Ertapenem 1 gm/ Sodium (Chloride) 50 mls @ 100 mls/hr IVPB DAILY [facility] Last Admin: 05/14/20 09:36 Dose: 100 mls/hr Documented by: Losartan Potassium (Cozaar -) 25 mg PO DAILY [facility] Last Admin: 05/14/20 09:31 Dose: 25 mg Documented by: Metoprolol Tartrate (Lopressor Injection -) 5 mg IVPUSH Q4H PRN PRN Reason: TACHYCARDIA Last Admin: 05/12/20 21:11 Dose: 5 mg Documented by: Metoprolol Tartrate (Lopressor -) 100 mg PO BID [facility] Last Admin: 05/14/20 21:00 Dose: 100 mg Documented by: Pantoprazole Sodium (Protonix -) 40 mg PO ACBK [facility] Last Admin: 09/17/20 06:25 Dose: 40 mg Documented by: Polyethylene Glycol (Miralax (For Daily Use) -) 17 gm PO DAILY [facility] Last Admin: 05/14/20 09:37 Dose: 17 gm Documented by: - Objective Vital Signs: Vital Signs Temperature 97.6 F 05/15/20 06:32 Pulse Rate 84 05/15/20 06:32 Respiratory Rate 18 05/15/20 06:32 Blood Pressure 143/73 05/15/20 06:32 O2 Sat by Pulse Oximetry (%) 100 05/15/20 06:32 Constitutional: Yes: No Distress, Calm, Thin Neck: Yes: Supple Cardiovascular: Yes: Pulse Irregular Respiratory: Yes: Regular, Diminished, On Nasal O2 Gastrointestinal: Yes: Soft, Hypoactive Bowel Sounds Edema: No Labs: CBC, BMP 05/15/20 06:45 05/15/20 06:45 - ....Imaging EKG: Report Reviewed (Tele: Afib) Problem List - Problems (1) Hyponatremia Code(s): E87.1 - HYPO-OSMOLALITY AND HYPONATREMIA (2) Hypotension Code(s): I95.9 - HYPOTENSION, UNSPECIFIED Qualifiers: Hypotension type: hypotension due to hypovolemia Qualified Code(s): I95.89 - Other hypotension; E86.1 - Hypovolemia (3) Leukocytosis (leucocytosis) Code(s): D72.829 - ELEVATED WHITE BLOOD CELL COUNT, UNSPECIFIED Qualifiers: Leukocytosis type: unspecified Qualified Code(s): D72.829 - Elevated white blood cell count, unspecified (4) Prerenal azotemia Code(s): R79.89 - OTHER SPECIFIED ABNORMAL FINDINGS OF BLOOD CHEMISTRY (5) Shortness of breath Code(s): R06.02 - SHORTNESS OF BREATH (6) AMS (altered mental status) Code(s): R41.82 - ALTERED MENTAL STATUS, UNSPECIFIED Qualifiers: Altered mental status type: unspecified Qualified Code(s): R41.82 - Altered mental status, unspecified (7) Atrial fibrillation with RVR Code(s): I48.91 - UNSPECIFIED ATRIAL FIBRILLATION (8) Sepsis Code(s): A41.9 - SEPSIS, UNSPECIFIED ORGANISM Qualifiers: Sepsis type: sepsis due to unspecified organism Sepsis acute organ dysfunction status: with acute organ dysfunction Severe sepsis acute organ dysfunction type: unspecified Severe sepsis shock status: without septic shock Qualified Code(s): A41.9 - Sepsis, unspecified organism; R65.20 - Severe sepsis without septic shock Assessment/Plan 05/07/2020 Renal US: No sig hydronephrosis a/p: 89 f hx dementia, afib with RVR, ppm, htn, hld, here with dyspnea, leukocytosis, fever, pyuria and ISAIAS since improving 1. Persistent afib with RVR variable HR 2. Dementia 3. Previous fall with SAH not ideal a/c candidate 4. s/p PPM ([facility] initially placed 1997; latest battery replacement ?2015; last checked 6 months ago) 5. HTN currently hypotensive 6. Hyperlipidemia 7. UTI 9. ISAIAS resolving 10. Demand ischemia PLAN: 1. Continue Metoprolol Tartrate to 100 mg BID and IV Lopressor as needed for added rate control. Continue Losartan 25 mg QD as tolerated 2. Not on anticoagulation due to bleeding risk 3. Empiric antibiotics 4. Continue Lipitor 40 mg QD. 5. Continue Lasix 40 mg QD with monitoring diuretic response, renal function and electrolytes 6. PPM interrogation 7. F/u with it quality assurance analyst: Dr. Sarath Hill upon discharge
[2020-05-15] MEDS: ERTAPENEM SODIUM 1 GM in SODIUM CHLORIDE 50 ML IVPB SCH (10:56)
[2020-05-15] MEDS: LOSARTAN POTASSIUM 50 MG TABLET (FP) PO SCH (10:57)
[2020-05-15] MEDS: FUROSEMIDE 40 MG TABLET (FP) PO SCH (10:57)
[2020-05-15] MEDS: METOPROLOL TARTRATE 50 MG TABLET (FP) PO SCH ×2 (10:57→21:34)
[2020-05-15] MEDS: POLYETHYLENE GLYCOL 3350 119 GM BTL PO SCH (10:59)
[2020-05-15] MEDS: CHOLECALCIFEROL (VIT D3) 1,000 UNIT (25 MCG) TABLET PO SCH (10:59)
--- NOTE | 2020-05-15 14:18 | PN ---
Progress Note, Physician Chief Complaint: Patient seen and examined at the bedside, no acute events from last night, afebrile, no labored breathing or chest pain. 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 producer and Klebsiella pneumoniae, an acute dyspnea, low back pain, fever, neutrophilic leukocytosis, prerenal azotemia, thrombocytopenia, elevated troponin d-dimer and lactic acid, and hyponatremia - Current Medication List Current Medications: Active Medications Acetaminophen (Tylenol -) 325 mg PO TID [facility] Last Admin: 05/15/20 14:10 Dose: 325 mg Documented by: Acetaminophen (Tylenol -) 650 mg PO Q6H PRN PRN Reason: PAIN LEVEL 4 - 6 Atorvastatin Calcium (Lipitor -) 40 mg PO HS [facility] Last Admin: 05/14/20 21:00 Dose: 40 mg Documented by: Cholecalciferol (Vitamin D3 -) 5,000 unit PO DAILY [facility] Last Admin: 05/15/20 10:59 Dose: 5,000 unit Documented by: Enoxaparin Sodium (Lovenox -) 60 mg SQ HS [facility] Last Admin: 05/14/20 21:01 Dose: 60 mg Documented by: Furosemide (Lasix -) 40 mg PO DAILY [facility] Last Admin: 05/15/20 10:57 Dose: 40 mg Documented by: Ertapenem 1 gm/ Sodium (Chloride) 50 mls @ 100 mls/hr IVPB DAILY [facility] Last Admin: 05/15/20 10:56 Dose: 100 mls/hr Documented by: Losartan Potassium (Cozaar -) 25 mg PO DAILY [facility] Last Admin: 05/15/20 10:57 Dose: 25 mg Documented by: Metoprolol Tartrate (Lopressor Injection -) 5 mg IVPUSH Q4H PRN PRN Reason: TACHYCARDIA Last Admin: 05/12/20 21:11 Dose: 5 mg Documented by: Metoprolol Tartrate (Lopressor -) 100 mg PO BID [facility] Last Admin: 05/15/20 10:57 Dose: 100 mg Documented by: Pantoprazole Sodium (Protonix -) 40 mg PO ACBK [facility] Last Admin: 05/15/20 06:25 Dose: 40 mg Documented by: Polyethylene Glycol (Miralax (For Daily Use) -) 17 gm PO DAILY [facility] Last Admin: 05/15/20 10:59 Dose: 17 gm Documented by: - Objective Vital Signs: Vital Signs Temperature 97.6 F 05/15/20 06:32 Pulse Rate 60 05/15/20 10:40 Respiratory Rate 18 05/15/20 06:32 Blood Pressure 143/73 05/15/20 06:32 O2 Sat by Pulse Oximetry (%) 92 L 05/15/20 10:40 Constitutional: Yes: Well Nourished, No Distress, Calm Eyes: Yes: Conjunctiva Clear, EOM Intact HENT: Yes: Atraumatic, Normocephalic Neck: Yes: Supple, Trachea Midline Cardiovascular: Yes: Pulse Irregular (atrial fibrillation) Respiratory: Yes: Regular, CTA Bilaterally Gastrointestinal: Yes: Normal Bowel Sounds, Soft ...Rectal Exam: Yes: Deferred Genitourinary: Yes: WNL Breast(s): Yes: WNL Musculoskeletal: Yes: Muscle Weakness Extremities: Yes: WNL Edema: No Peripheral Pulses WNL: Yes Integumentary: Yes: WNL Neurological: Yes: Alert, Unsteady Gait, Weakness ...Motor Strength: LUE (generalized muscle weakness of all extremities) Psychiatric: Yes: Alert Labs: CBC, BMP 05/15/20 06:45 05/15/20 06:45 - ....Imaging Other: Report Reviewed (lab data reviewed) Problem List - Problems (1) AMS (altered mental status) Code(s): R41.82 - ALTERED MENTAL STATUS, UNSPECIFIED Qualifiers: Altered mental status type: unspecified Qualified Code(s): R41.82 - Altered mental status, unspecified (2) Atrial fibrillation with RVR Code(s): I48.91 - UNSPECIFIED ATRIAL FIBRILLATION (3) Elevated INR Code(s): R79.1 - ABNORMAL COAGULATION PROFILE (4) Elevated troponin Code(s): R79.89 - OTHER SPECIFIED ABNORMAL FINDINGS OF BLOOD CHEMISTRY (5) Eosinophilia Code(s): D72.1 - EOSINOPHILIA (6) Fever Code(s): R50.9 - FEVER, UNSPECIFIED (7) Intracranial bleed Code(s): I62.9 - NONTRAUMATIC INTRACRANIAL HEMORRHAGE, UNSPECIFIED (8) Pneumonia Code(s): J18.9 - PNEUMONIA, UNSPECIFIED ORGANISM Qualifiers: Pneumonia type: due to unspecified organism Laterality: left Lung locati on: lower lobe of lung Qualified Code(s): J18.9 - Pneumonia, unspecified organism (9) Sepsis Code(s): A41.9 - SEPSIS, UNSPECIFIED ORGANISM Qualifiers: Sepsis type: sepsis due to unspecified organism Sepsis acute organ dysfunction status: with acute organ dysfunction Severe sepsis acute organ dysfunction type: unspecified Severe sepsis shock status: without septic shock Qualified Code(s): A41.9 - Sepsis, unspecified organism; R65.20 - Severe sepsis without septic shock (10) Suspected 2019 novel coronavirus infection Code(s): Z20.828 - CONTACT W AND EXPOSURE TO [facility] VIRAL COMMUNICABLE DISEASES (11) Shortness of breath Code(s): R06.02 - SHORTNESS OF BREATH (12) Prerenal azotemia Code(s): R79.89 - OTHER SPECIFIED ABNORMAL FINDINGS OF BLOOD CHEMISTRY (13) Dehydration Code(s): E86.0 - DEHYDRATION (14) High serum lactic acid Code(s): R79.89 - OTHER SPECIFIED ABNORMAL FINDINGS OF BLOOD CHEMISTRY (15) Thrombocytopenia Code(s): D69.6 - THROMBOCYTOPENIA, UNSPECIFIED (16) Leukocytosis (leucocytosis) Code(s): D72.829 - ELEVATED WHITE BLOOD CELL COUNT, UNSPECIFIED Qualifiers: Leukocytosis type: unspecified Qualified Code(s): D72.829 - Elevated white blood cell count, unspecified (17) Hyponatremia Code(s): E87.1 - HYPO-OSMOLALITY AND HYPONATREMIA (18) Hypotension Code(s): I95.9 - HYPOTENSION, UNSPECIFIED Qualifiers: Hypotension type: hypotension due to hypovolemia Qualified Code(s): I95.89 - Other hypotension; E86.1 - Hypovolemia (19) Iron deficiency anemia Code(s): D50.9 - IRON DEFICIENCY ANEMIA, UNSPECIFIED (20) Hypokalemia Code(s): E87.6 - HYPOKALEMIA Assessment/Plan Assessment/plan: IV Ertapenem as per ID for acute urosepsis due to E Coli esbl photo producer and Klebsiella pneumoniae UIT; a/c with Lovenox for atrial fibrillation; SQ Lovenox and oral pantoprazole for DVT/GI prophylaxis; atorvastatin for HLD; losartan for HTN; IV and oral metoprolol for rapid heart rate control; Miralax for constipation; physical therapy for deconditioning.
[2020-05-15] MEDS: ATORVASTATIN CA 40 MG TABLET (FP) PO SCH (21:34)
[2020-05-15] MEDS: ENOXAPARIN NA (PORCINE) 60 MG/0.6 ML DISP.SYRIN SQ SCH (21:35)
[2020-05-16] MEDS: ACETAMINOPHEN 325 MG TABLET (FP) PO SCH ×2 (05:33→13:45)
[2020-05-16] MEDS: PANTOPRAZOLE 40 MG TABLET PO SCH (06:02)
--- NOTE | 2020-05-16 08:18 | PN ---
Progress Note, Physician Chief Complaint: Patient seen and examined at the bedside, no acute events from last night, afebrile, no labored breathing, chest pain of palpitations. 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 - Current Medication List Current Medications: Active Medications Acetaminophen (Tylenol -) 325 mg PO TID [facility] Last Admin: 05/16/20 05:33 Dose: 325 mg Documented by: Acetaminophen (Tylenol -) 650 mg PO Q6H PRN PRN Reason: PAIN LEVEL 4 - 6 Atorvastatin Calcium (Lipitor -) 40 mg PO HS [facility] Last Admin: 05/15/20 21:34 Dose: 40 mg Documented by: Cholecalciferol (Vitamin D3 -) 5,000 unit PO DAILY [facility] Last Admin: 05/15/20 10:59 Dose: 5,000 unit Documented by: Enoxaparin Sodium (Lovenox -) 60 mg SQ HS [facility] Last Admin: 05/15/20 21:35 Dose: 60 mg Documented by: Furosemide (Lasix -) 40 mg PO DAILY [facility] Last Admin: 05/15/20 10:57 Dose: 40 mg Documented by: Losartan Potassium (Cozaar -) 25 mg PO DAILY [facility] Last Admin: 05/15/20 10:57 Dose: 25 mg Documented by: Metoprolol Tartrate (Lopressor Injection -) 5 mg IVPUSH Q4H PRN PRN Reason: TACHYCARDIA Last Admin: 05/12/20 21:11 Dose: 5 mg Documented by: Metoprolol Tartrate (Lopressor -) 100 mg PO BID [facility] Last Admin: 05/15/20 21:34 Dose: 100 mg Documented by: Pantoprazole Sodium (Protonix -) 40 mg PO ACBK [facility] Last Admin: 05/16/20 06:02 Dose: 40 mg Documented by: Polyethylene Glycol (Miralax (For Daily Use) -) 17 gm PO DAILY [facility] Last Admin: 05/15/20 10:59 Dose: 17 gm Documented by: - Objective Vital Signs: Vital Signs Temperature 98.7 F 05/16/20 06:00 Pulse Rate 75 05/16/20 06:00 Respiratory Rate 18 05/16/20 06:00 Blood Pressure 122/59 L 05/16/20 06:00 O2 Sat by Pulse Oximetry (%) 99 05/16/20 06:00 Constitutional: Yes: Well Nourished, No Distress, Calm Eyes: Yes: Conjunctiva Clear, EOM Intact HENT: Yes: Atraumatic, Normocephalic Neck: Yes: Supple, Trachea Midline Cardiovascular: Yes: Pulse Irregular (atrial fibrillation) Respiratory: Yes: Regular, CTA Bilaterally Gastrointestinal: Yes: Normal Bowel Sounds, Soft ...Rectal Exam: Yes: Deferred Genitourinary: Yes: WNL Breast(s): Yes: WNL Musculoskeletal: Yes: Muscle Weakness Edema: No Peripheral Pulses WNL: Yes Integumentary: Yes: WNL Neurological: Yes: Alert, Unsteady Gait, Weakness ...Motor Strength: LUE (generalized muscle weakness of all extremities) Psychiatric: Yes: Alert Labs: CBC, BMP 05/15/20 06:45 05/15/20 06:45 - ....Imaging Other: Report Reviewed (lab data reviewed) Problem List - Problems (1) AMS (altered mental status) Code(s): R41.82 - ALTERED MENTAL STATUS, UNSPECIFIED Qualifiers: Altered mental status type: unspecified Qualified Code(s): R41.82 - Altered mental status, unspecified (2) Atrial fibrillation with RVR Code(s): I48.91 - UNSPECIFIED ATRIAL FIBRILLATION (3) Elevated INR Code(s): R79.1 - ABNORMAL COAGULATION PROFILE (4) Elevated troponin Code(s): R79.89 - OTHER SPECIFIED ABNORMAL FINDINGS OF BLOOD CHEMISTRY (5) Eosinophilia Code(s): D72.1 - EOSINOPHILIA (6) Fever Code(s): R50.9 - FEVER, UNSPECIFIED (7) Intracranial bleed Code(s): I62.9 - NONTRAUMATIC INTRACRANIAL HEMORRHAGE, UNSPECIFIED (8) Pneumonia Code(s): J18.9 - PNEUMONIA, UNSPECIFIED ORGANISM Qualifiers: Pneumonia type: due to unspecified organism Laterality: left Lung location: lower lobe of lung Qualified Code(s): J18.9 - Pneumonia, unspecified organism (9) Sepsis Code(s): A41.9 - SEPSIS, UNSPECIFIED ORGANISM Qualifiers: Sepsis type: sepsis due to unspecified organism Sepsis acute organ dysfunction status: with acute organ dysfunction Severe sepsis acute organ dysfunction type: unspecified Severe sepsis shock status: without septic shock Qualified Code(s): A41.9 - Sepsis, unspecified organism; R65.20 - Severe sepsis without septic shock (10) Suspected 2019 novel coronavirus infection Code(s): Z20.828 - CONTACT W AND EXPOSURE TO [facility] VIRAL COMMUNICABLE DISEASES (11) Shortness of breath Code(s): R06.02 - SHORTNESS OF BREATH (12) Prerenal azotemia Code(s): R79.89 - OTHER SPECIFIED ABNORMAL FINDINGS OF BLOOD CHEMISTRY (13) Dehydration Code(s): E86.0 - DEHYDRATION (14) High serum lactic acid Code(s): R79.89 - OTHER SPECIFIED ABNORMAL FINDINGS OF BLOOD CHEMISTRY (15) Thrombocytopenia Code(s): D69.6 - THROMBOCYTOPENIA, UNSPECIFIED (16) Leukocytosis (leucocytosis) Code(s): D72.829 - ELEVATED WHITE BLOOD CELL COUNT, UNSPECIFIED Qualifiers: Leukocytosis type: unspecified Qualified Code(s): D72.829 - Elevated white blood cell count, unspecified (17) Hyponatremia Code(s): E87.1 - HYPO-OSMOLALITY AND HYPONATREMIA (18) Hypotension Code(s): I95.9 - HYPOTENSION, UNSPECIFIED Qualifiers: Hypotension type: hypotension due to hypovolemia Qualified Code(s): I95.89 - Other hypotension; E86.1 - Hypovolemia (19) Iron deficiency anemia Code(s): D50.9 - IRON DEFICIENCY ANEMIA, UNSPECIFIED (20) Hypokalemia Code(s): E87.6 - HYPOKALEMIA Assessment/Plan Assessment/plan: acute E Coli esbl handbook writer and Klebsiella pneumoniae urosepsis due to UTI; a/c with Lovenox for atrial fibrillation; SQ Lovenox and oral pantoprazole for DVT/GI prophylaxis; s alk phos and d-dimer trending down; atorvastatin for HLD; losartan for HTN; oral and IV metoprolol for rapid heart rate control; oral Furosemide; physical therapy for deconditioning, discharge planning, addiction social worker request.
--- NOTE | 2020-05-16 08:57 | PN ---
Progress Note, Physician History of Present Illness: This 89 yr old female with PMH of atrial fibrillation, dementia non- verbal, HTN, HLD, PPM, DVT, CHF, previous fall with SAH admitted via ER with shortness of breath, low back pain, fever, neutrophilic leukocytosis, high d- dimer, UTI, urosepsis, elevated lactic acid, prerenal azotemia, dehydration, hyponatremia, elevated troponin, anemia, and thrombocytopenia. Afebrile w/ improved hemodynamics and afib rate-controlled with metoprolol, tolerating PT with walker assistance. Previous conclusion patient was not optimal a/c candidate. - Current Medication List Current Medications: Active Medications Acetaminophen (Tylenol -) 325 mg PO TID [facility] Last Admin: 05/16/20 05:33 Dose: 325 mg Documented by: Acetaminophen (Tylenol -) 650 mg PO Q6H PRN PRN Reason: PAIN LEVEL 4 - 6 Atorvastatin Calcium (Lipitor -) 40 mg PO HS [facility] Last Admin: 05/15/20 21:34 Dose: 40 mg Documented by: Cholecalciferol (Vitamin D3 -) 5,000 unit PO DAILY [facility] Last Admin: 05/15/20 10:59 Dose: 5,000 unit Documented by: Enoxaparin Sodium (Lovenox -) 60 mg SQ HS [facility] Last Admin: 05/15/20 21:35 Dose: 60 mg Documented by: Furosemide (Lasix -) 40 mg PO DAILY [facility] Last Admin: 05/15/20 10:57 Dose: 40 mg Documented by: Losartan Potassium (Cozaar -) 25 mg PO DAILY [facility] Last Admin: 05/15/20 10:57 Dose: 25 mg Documented by: Metoprolol Tartrate (Lopressor Injection -) 5 mg IVPUSH Q4H PRN PRN Reason: TACHYCARDIA Last Admin: 05/12/20 21:11 Dose: 5 mg Documented by: Metoprolol Tartrate (Lopressor -) 100 mg PO BID [facility] Last Admin: 05/15/20 21:34 Dose: 100 mg Documented by: Pantoprazole Sodium (Protonix -) 40 mg PO ACBK [facility] Last Admin: 05/16/20 06:02 Dose: 40 mg Documented by: Polyethylene Glycol (Miralax (For Daily Use) -) 17 gm PO DAILY [facility] Last Admin: 05/15/20 10:59 Dose: 17 gm Documented by: - Objective Vital Signs: Vital Signs Temperature 98.7 F 05/16/20 06:00 Pulse Rate 75 05/16/20 06:00 Respiratory Rate 18 05/16/20 06:00 Blood Pressure 122/59 L 05/16/20 06:00 O2 Sat by Pulse Oximetry (%) 99 05/16/20 06:00 Constitutional: Yes: No Distress, Calm, Thin Cardiovascular: Yes: Pulse Irregular Respiratory: Yes: Diminished, On Nasal O2 Gastrointestinal: Yes: Normal Bowel Sounds, Soft Edema: No Labs: CBC, BMP 05/15/20 06:45 05/15/20 06:45 - ....Imaging EKG: Report Reviewed (Tele: Rate-controlled afib) Problem List - Problems (1) Shortness of breath Code(s): R06.02 - SHORTNESS OF BREATH (2) AMS (altered mental status) Code(s): R41.82 - ALTERED MENTAL STATUS, UNSPECIFIED Qualifiers: Altered mental status type: delirium Qualified Code(s): R41.0 - Disorientation, unspecified (3) Atrial fibrillation with RVR Code(s): I48.91 - UNSPECIFIED ATRIAL FIBRILLATION (4) Sepsis Code(s): A41.9 - SEPSIS, UNSPECIFIED ORGANISM Qualifiers: Sepsis type: sepsis due to unspecified organism Sepsis acute organ dysfunction status: with acute organ dysfunction Severe sepsis acute organ dysfunction type: unspecified Severe sepsis shock status: without septic shock Qualified Code(s): A41.9 - Sepsis, unspecified organism; R65.20 - Severe sepsis without septic shock Assessment/Plan 05/07/2020 Renal US: No sig hydronephrosis a/p: 89 f hx dementia, afib with RVR, ppm, htn, hld, here with dyspnea, leukocytosis, fever, pyuria and ISAIAS since improving 1. Persistent afib with RVR variable HR 2. Dementia 3. Previous fall with SAH not ideal a/c candidate 4. s/p PPM ([facility] initially placed 1997; latest battery replacement ?2015; last checked 6 months ago) 5. HTN currently hypotensive 6. Hyperlipidemia 7. UTI 9. ISAIAS resolving 10. Demand ischemia PLAN: 1. Continue Metoprolol Tartrate to 100 mg BID and IV Lopressor as needed for added rate control. Continue Losartan 25 mg QD as tolerated 2. Not on anticoagulation due to bleeding risk 3. Completed empiric antibiotics 4. Continue Lipitor 40 mg QD. 5. Decrease Lasix 20 mg QD with monitoring diuretic response, renal function and electrolytes 6. PPM interrogation 7. F/u with digital marketing program manager: Dr. Sarath Hill upon discharge
[2020-05-16] MEDS: CHOLECALCIFEROL (VIT D3) 1,000 UNIT (25 MCG) TABLET PO SCH (09:00)
[2020-05-16] MEDS: METOPROLOL TARTRATE 50 MG TABLET (FP) PO SCH (09:00)
[2020-05-16] MEDS: LOSARTAN POTASSIUM 50 MG TABLET (FP) PO SCH (09:01)
[2020-05-16] MEDS: POLYETHYLENE GLYCOL 3350 119 GM BTL PO SCH (09:01)
[2020-05-16] MEDS: FUROSEMIDE 40 MG TABLET (FP) PO SCH (09:01)
[2020-05-16] MEDS ORDERED: FUROSEMIDE 20 MG TABLET (FP) PO SCH (15:19)
--- NOTE | 2020-05-16 17:07 | DS ---
Physical Examination Vital Signs: Vital Signs Temperature 98.6 F 05/16/20 14:19 Pulse Rate 84 05/16/20 14:19 Respiratory Rate 18 05/16/20 14:19 Blood Pressure 113/67 05/16/20 14:19 O2 Sat by Pulse Oximetry (%) 100 05/16/20 10:00 Constitutional: Yes: Well Nourished, No Distress, Calm Eyes: Yes: Conjunctiva Clear, EOM Intact HENT: Yes: Atraumatic Neck: Yes: Supple Cardiovascular: Yes: Pulse Irregular (atrial fibrillation) Respiratory: Yes: Regular, CTA Bilaterally Gastrointestinal: Yes: Normal Bowel Sounds, Soft ...Rectal Exam: Yes: Deferred Renal/: Yes: WNL Musculoskeletal: Yes: Muscle Weakness Extremities: Yes: WNL Edema: No Peripheral Pulses WNL: Yes Integumentary: Yes: WNL Neurological: Yes: Alert, Unsteady Gait, Weakness ...Motor Strength: LUE (generalized muscle weakness of all extremities) Psychiatric: Yes: Alert Labs: CBC, BMP 05/15/20 06:45 05/15/20 06:45 Discharge Summary Problems reviewed: Yes Reason For Visit: ACUTE KIDNEY INJURY, URINARY TRACT INFECTION, DYSP Current Active Problems ISAIAS (acute kidney injury) (Acute) Dehydration (Acute) Elevated troponin (Acute) High serum lactic acid (Acute) Hypokalemia (Acute) Hyponatremia (Acute) Hypotension (Acute) Iron deficiency anemia (Acute) Leukocytosis (leucocytosis) (Acute) Prerenal azotemia (Acute) Pyuria (Acute) Shortness of breath (Acute) Thrombocytopenia (Acute) Condition: Improved - Instructions Diet, Activity, Other Instructions: Continue present meds. Activity as tolerated. Physical therapy. Follow up with Dr. Rodrigez within one week. Total time spent over 30 minutes. Referrals: Gibran Naidu [Primary Care Provider] - [facility] - Home Medications Comprehensive Discharge Medication List: Ambulatory Orders Amlodipine Besylate 5 mg PO DAILY 12/23/19 Furosemide 40 mg PO DAILY 12/23/19 Aspirin Coated [Ecotrin -] 81 mg PO DAILY tablet.ec 12/31/19 Atorvastatin Ca [Lipitor] 40 mg PO HS tablet 12/31/19 Cholecalciferol (Vitamin D3) [Vitamin D3 -] 5,000 unit PO DAILY tab 12/31/19 Acetaminophen [Tylenol .Regular Strength -] 325 mg PO TID tablet 05/16/20 Acetaminophen [Tylenol .Regular Strength -] 650 mg PO Q6H PRN tablet 05/16/20 Atorvastatin Ca [Lipitor] 40 mg PO HS tablet 05/16/20 Cholecalciferol (Vitamin D3) [Vitamin D3 -] 5,000 unit PO DAILY tab 05/16/20 Furosemide [Lasix -] 40 mg PO DAILY tablet 05/16/20 Losartan Potassium [Cozaar -] 25 mg PO DAILY #30 tablet 05/16/20 Metoprolol Tartrate [Lopressor -] 100 mg PO BID #60 tablet 05/16/20 Polyethylene Glycol 3350 [Miralax 119 gm Btl -] 17 gm PO DAILY bottle 05/16/20
[2020-05-16 18:47] VITALS: BP 121/68; PULSE 71; TEMP 98.1
== END 2020-05-16 21:26 | DRG 872 ==
LOC: JER 23:20 → JERBED 05-06 01:43 → J4S 05-06 19:33
PROVIDERS: ADMIT Internal Medicine; ATTEND Internal Medicine
DX: A41.51 Sepsis due to Escherichia coli [E. coli] (principal); N39.0 Urinary tract infection, site not specified; N17.9 Acute kidney failure, unspecified; E87.1 Hypo-osmolality and hyponatremia; I48.19 Other persistent atrial fibrillation; I24.8 Other forms of acute ischemic heart disease; E87.2 Acidosis; Z16.12 Extended spectrum beta lactamase (ESBL) resistance; F03.90 Unspecified dementia, unspecified severity, without behavioral disturbance, psychotic disturbance, mood disturbance, and anxiety; E86.0 Dehydration; D50.9 Iron deficiency anemia, unspecified; D72.829 Elevated white blood cell count, unspecified; D69.6 Thrombocytopenia, unspecified; E78.5 Hyperlipidemia, unspecified; I11.0 Hypertensive heart disease with heart failure; I50.9 Heart failure, unspecified; I95.9 Hypotension, unspecified; B96.20 Unspecified Escherichia coli [E. coli] as the cause of diseases classified elsewhere; B96.1 Klebsiella pneumoniae [K. pneumoniae] as the cause of diseases classified elsewhere; K59.00 Constipation, unspecified
CPT/HCPCS: 36415; 70450-TC; 71045-TC-FY; 73130-TC-LT-FY; 76775-TC; 80053; 81003; 82550; 82728; 82803; 83540; 83550; 83605; 83880; 84484; 85025; 85379; 86140; 87040; 87086; 87186; 93005; 93010; 94761; 97116-GP; 97161-GP; 99285-25; J1756; U0003